=== PATIENT | male | born 1955 | race Caucasian/White ===

== ENCOUNTER 2023-01-23 07:31 | Emergency (ER) | payer OTHER ==
--- OUTSIDE RECORDS SUMMARY | 2023-01-23 07:38 | XMS REPORT | Continuity of Care Document ---
:1955 Author Organization [facility] t Address [address] [place] [address] [address] [place] [address] Care Team Providers Name Role Phone Faraz Sheikhkerrie Billings Primary Care Physician Chadwick Stephens Attending Clinician Jenni Bain MD Attending Clinician JENNI BAIN Attending Clinician Unavailable Doctor Unassigned, [place] Attending Clinician Unavailable DONALDO HAMMONDS Attending Clinician Unavailable DONALDO HAMMONDS Attending Clinician Unavailable JENNI BAIN Admitting Clinician Unavailable DONALDO HAMMONDS Admitting Clinician Unavailable Payers Payer Name Policy Type Policy Number Effective Date Expiration Date S ource Problems Condition Condition Condition Status Onset Resolution Last Treating Co mments Source Name Details Category Date Date Treatment Clinician Date No known No known Disease Unive rs active active ity of problems problems [facility] Amnesia Amnesia Problem Active 2022-10-11 Me moria (finding) (finding) 17:04:03 l Active [place] Problem 10/11/2022 [facility] Dementia Dementia Problem Active 2022-10-11 Memoria (disorder) (disorder) 17:04:03 l Active [place] Problem 10/11/2022 [facility] Diarrhea Diarrhea Problem Active 2022-10-11 Memoria (finding) (finding) 17:04:03 l Active [place] Problem 10/11/2022 [facility] Gout Gout Problem Active 2022-10-11 Memor ia (disorder) (disorder) 17:04:03 l Active [place] Problem 10/11/2022 [facility] [place] Hemianopia Problem Active 2022-10-11 M emoria (finding) Hemianopia 17:04:03 l (finding) Stafford Active Problem 10/11/2022 [facility] [place] Hypertensi Hypertens Problem Active 2022-10-11 Memoria ve hailey 17:04:03 l disorder, disorder, Herm sosa systemic systemic arterial arterial (disorder) (disorder) Active Problem 10/11/2022 [facility] Thiamin Thiamin Problem Active 2022-10-11 Me moria deficiency deficiency 17:04:03 l (disorder) (disorder) He rmann Active Problem 10/11/2022 [facility] Allergies, Adverse Reactions, Alerts Allergy Allergy Status Severity Reaction(s) Onset Inactive Treating Comm ents Source Name Type Date Date Clinician No Known No Known Active Memori a Medicati Medicati l on on [place] Allergie Allergie s s NO KNOWN Drug Active Univers ALLERGIE Class ity of S [facility] Social History Social Habit Start Date Stop Date Quantity Comments Source Exposure to 2022-05-04 2022-05-14 Not sure [facility] SARS-CoV-2 00:00:00 13:12:00 [facility] (event) Branch Tobacco use and 2022-04-26 2022-04-26 Smokeless tobacco Un iversity of exposure 00:00:00 00:00:00 non-user [facility] Alcohol intake 2022-04-26 2022-04-26 Ex-drinker [facility] 00:00:00 00:00:00 (finding) [facility] Social History 2021-06-13 2021-06-13 [facility] 15:56:06 15:56:06 Sex Ass[birth year] Universit y of 00:00:00 00:00:00 [facility] Smoking Status Start Date Stop Date Source Tobacco smoking consumption Univ ersity of [facility] Branch Tobacco smoking status [facility] Medications Ordered Filled Start Stop Current Ordering Indication Dosage Frequency Signature Comments Components Source Medication Medication Date Date Medication? Clinician (SIG) Name Name mirtazapine Yes = 1 tab, Me moria 15 mg oral 1-17 PO, l tablet 21:52: Bedtime, # Cristy nn 00 30 tab, 0 Refill(s), Pharmacy: [facility], 172.72, cm, 05/29/22 13:37:00 CDT, Height, 90.455, kg, 05/29/22 13:37:00 CDT, Weight Remeron 15 2021-08 Yes 15 mg = 1 Me moria mg oral 2-02 tab, PO, l tablet 18:39: Bedtime, # Cristy nn 00 30 tab, 1 Refill(s), Pharmacy: [facility], 172.72, cm, 05/29/22 13:37:00 CDT, Height, 90.455, kg, 05/29/22 13:37:00 CDT, Weight Exelon 4.6 2021-08 Yes = 1 patch, M emoria mg/24 hr 0-26 TOP, l transdermal 18:59: Daily, Herm sosa film, 00 apply to extended area that release is clean/dry/ hairless & free of redness/ir ritation/b urns/cuts, # 30 patch, 2 Refill(s), Pharmacy: [facility], 172.72, cm, 05/29/22 13:37:00 CDT, Height, 90.455, kg, 05/29/22 13:37:00 CDT, Weight allopurinol 2021-08 Yes TAKE 1 Yung delia 300 mg oral 0-26 TABLET BY l tablet 18:38: MOUTH ONCE Cristy nn 00 DAILY. TAKE COLCHICINE DAILY FOR 7 DAYS, THEN START ON ALLOPURINO L traZODone Yes 50mg Take 50 mg Un iglesia 50 mg 9-23 by mouth ity of tablet 15:11: at [place] [address] bedtime. Medical Branch aspirin 81 0 Yes 81mg Take 81 mg U nivers mg chewable 9-23 by mouth ity of tablet 15:11: in the [place] morning. Medical Branch lisinopriL Yes 10mg Take 10 mg U nivers 10 mg 9-23 by mouth ity of tablet 15:11: in the [place] morning. Medical Branch traZODone Yes 50mg Take 50 mg Un iglesia 50 mg 9-23 by mouth ity of tablet 15:11: at [place] [address] bedtime. Medical Branch aspirin 81 0 Yes 81mg Take 81 mg U nivers mg chewable 9-23 by mouth ity of tablet 15:11: in the [place] [address] morning. Medical Branch lisinopriL Yes 10mg Take 10 mg U nivers 10 mg 9-23 by mouth ity of tablet 15:11: in the [place] [address] morning. Medical Branch traZODone Yes 50mg Take 50 mg Un iglesia 50 mg 9-23 by mouth ity of tablet 15:11: at [place] [address] bedtime. Medical Branch aspirin 81 Yes 81mg Take 81 mg U nivers mg chewable 9-23 by mouth ity of tablet 15:11: in the [place] [address] morning. Medical Branch lisinopriL Yes 10mg Take 10 mg U nivers 10 mg 9-23 by mouth ity of tablet 15:11: in the [place] [address] morning. Medical Branch trazodone Yes TAKE 1 Memori a 50 mg oral 9-20 TABLET BY l tablet 20:18: MOUTH ONCE Cristy nn 00 DAILY AT NIGHT trazodone Yes TAKE 1 Memori a 50 mg oral 9-20 TABLET BY l tablet 20:18: MOUTH ONCE Cristy nn 00 DAILY AT NIGHT iopamidol 2021- No [id number] 130mL 130 mL, Univers (ISOVUE 04-13 Intravenou ity o f 370-500 mL) 03:00: 01:50 s, ONCE, 1 [place] injection 00 :00 dose, On Medica l 130 mL Fri04/12/22 Branch at 2200, Routine tetracaine 2021- No 2[drp] 2 Drop, U nivers (PONTOCAINE 04-13 Left Eye, it y of ) 0.5 % 02:31: 02:32 ONCE, 1 [place] ophthalmic 00 :00 dose, On Medic al drops 2 Fri04/12/22 Branch Drop at 2145, Routine Memantine Yes 5 mg = 1 Yung delia hydrochlori 5-10 tab, PO, l de 5 MG 15:45: BID, # 60 Cristy nn Oral Tablet 00 tab, 3 [Namenda] Refill(s), Pharmacy: [facility], 177.8, cm, 06/14/20 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, Height, 90, kg, 06/14/20 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, Weight thiamine 2020-0 Yes 100 mg = 1 Mem oria 100 mg oral 5-10 tab, PO, l tablet 15:45: Daily, X Danny 90 day, # 90 tab, 2 Refill(s), Pharmacy: [facility], 177.8, cm, 06/14/20 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, Height, 90, kg, 06/14/20 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, Weight Memantine 2020-0 Yes 5 mg = 1 Yung delia hydrochlori 5-10 tab, PO, l de 5 MG 15:45: BID, # 60 Cristy nn Oral Tablet 00 tab, 3 [Namenda] Refill(s), Pharmacy: [place] [id number], 177.8, cm, 06/14/20 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, Height, 90, kg, 06/14/20 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, Weight thiamine 2020-0 Yes 100 mg = 1 Mem oria 100 mg oral 5-10 tab, PO, l tablet 15:45: Daily, X Danny 90 day, # 90 tab, 2 Refill(s), Pharmacy: [facility], 177.8, cm, 06/14/20 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, Height, 90, kg, 06/14/20 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, Weight Memantine 2019- Yes 5 mg = 1 Yung delia hydrochlori 1-11 tab, PO, l de 5 MG 19:41: BID, # 60 Cristy nn Oral Tablet 00 tab, 3 [Namenda] Refill(s), Pharmacy: [facility], 177.8, cm, 06/14/20 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, Height, 90, kg, 06/14/20 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, Weight Memantine 2020-1 Yes 5 mg = 1 Yung delia hydrochlori 1-11 tab, PO, l de 5 MG 19:41: BID, # 60 Cristy nn Oral Tablet 00 tab, 3 [Namenda] Refill(s), Pharmacy: [facility], 177.8, cm, 06/14/20 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, Height, 90, kg, 06/14/20 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, Weight Galantamine 2019-08 No 4 mg = 1 Me moria 4 MG Oral 0-21 tab, PO, l Tablet 16:02: Daily, # Stafford [Razadyne] 00 30 tab, 3 Refill(s), Pharmacy: [facility], 175.26, cm, 05/17/20 10:02:00 CDT, Height, 91.364, kg, 05/17/20 10:02:00 CDT, Weight Galantamine 2019-08 No 4 mg = 1 Me moria 4 MG Oral 0-21 tab, PO, l Tablet 16:02: Daily, # Stafford [Razadyne] 00 30 tab, 3 Refill(s), Pharmacy: [facility], 175.26, cm, 05/17/20 10:02:00 CDT, Height, 91.364, kg, 05/17/20 10:02:00 CDT, Weight thiamine 2019-08 Yes 100 mg = 1 Mem oria 100 mg oral 0-14 tab, PO, l tablet 15:11: Daily, X Stafford day, # 90 tab, 1 Refill(s), Pharmacy: [facility], 175.26, cm, 05/17/20 10:02:00 CDT, Height, 91.364, kg, 05/17/20 10:02:00 CDT, Weight Donepezil 2019-08 Yes 10 mg = 1 Mem oria hydrochlori 0-14 tab, PO, l de 10 MG 15:11: Bedtime, # Her shipley Oral Tablet 00 30 tab, 3 [Aricept] Refill(s), Pharmacy: [facility], 175.26, cm, 05/17/20 10:02:00 CDT, Height, 91.364, kg, 05/17/20 10:02:00 CDT, Weight thiamine 2019-08 Yes 100 mg = 1 Mem oria 100 mg oral 0-14 tab, PO, l tablet 15:11: Daily, X Danny 90 day, # 90 tab, 1 Refill(s), Pharmacy: [facility], 175.26, cm, 05/17/20 10:02:00 CDT, Height, 91.364, kg, 05/17/20 10:02:00 CDT, Weight Donepezil 2019-1 Yes 10 mg = 1 Mem oria hydrochlori 0-14 tab, PO, l de 10 MG 15:11: Bedtime, # Her shipley Oral Tablet 00 30 tab, 3 [Aricept] Refill(s), Pharmacy: [facility], 175.26, cm, 05/17/20 10:02:00 CDT, Height, 91.364, kg, 05/17/20 10:02:00 CDT, Weight thiamine 2019- No 100 mg = 1 Mem oria 100 mg oral 0-14 tab, PO, l tablet 15:10: Daily, # Stafford 00 90 tab, 1 Refill(s) thiamine 2019-08 No 100 mg = 1 Mem oria 100 mg oral 0-14 tab, PO, l tablet 15:10: Daily, # Danny 00 90 tab, 1 Refill(s) Donepezil 2020-0 Yes 5 mg = 1 Yung delia hydrochlori 9-30 tab, PO, l de 5 MG 16:00: Bedtime, # Herm sosa Oral Tablet 00 30 tab, 3 [Aricept] Refill(s), Pharmacy: [facility], 172.72, cm, 05/03/20 10:23:00 CDT, Height, 90.909, kg, 05/03/20 10:23:00 CDT, Weight Donepezil 2020-0 Yes 5 mg = 1 Yung delia hydrochlori 9-30 tab, PO, l de 5 MG 16:00: Bedtime, # Herm sosa Oral Tablet 00 30 tab, 3 [Aricept] Refill(s), Pharmacy: [facility], 172.72, cm, 05/03/20 10:23:00 CDT, Height, 90.909, kg, 05/03/20 10:23:00 CDT, Weight lisinopril 2020-0 Yes 10 mg = 1 Me moria 10 mg oral 9-18 tab, PO, l tablet 18:29: Daily, 0 Stafford 00 Refill(s) aspirin 81 2020-0 Yes 162 mg = 2 M emoria mg tablet, 9-18 tab, PO, l enteric 18:29: Daily, # Les n coated 00 90 tab, 3 Refill(s) Aspirin 81 2020-0 Yes 81 mg = 1 Me moria MG Enteric 9-18 tab, PO, l Coated 18:29: Daily, # [place] Tablet 00 90 tab, 3 Refill(s) Diphenhydra 2020-0 Yes 2 tab, PO, Memoria mine 9-18 Bedtime, 0 l Hydrochlori 18:29: Refill(s) H ermann de 25 MG / 00 Naproxen sodium 220 MG Oral Tablet [Aleve PM] lisinopril 2019-0 Yes 10 mg = 1 Me moria 10 mg oral 9-18 tab, PO, l tablet 18:29: Daily, 0 Stafford 00 Refill(s) Aspirin 81 2020-0 Yes 81 mg = 1 Me moria MG Enteric 9-18 tab, PO, l Coated 18:29: Daily, # Danny Tablet 00 90 tab, 3 Refill(s) Diphenhydra 2020-0 Yes 2 tab, PO, Memoria mine 918 Bedtime, 0 l Hydrochlori 18:29: Refill(s) H ermann de 25 MG / 00 Naproxen sodium 220 MG Oral Tablet [Aleve PM] Vital Signs Vital Name Observation Time Observation Value Comments Source Systolic blood 2022-04-26 20:16:00 94 mm[Hg] [facility] Diastolic blood 2022-04-26 20:16:00 67 mm[Hg] [facility] Heart rate 2022-04-26 20:16:00 93 /min [facility] Oxygen saturation in 2022-04-26 20:16:00 96 /min [facility] Arterial blood by [facility] Pulse oximetry Branch Body temperature 2022-04-26 20:14:00 36.56 [facility] Respiratory rate 2022-04-26 20:14:00 19 /min [facility] Body height 2022-04-26 20:14:[address] [facility] Body weight 2022-04-26 20:14:[address] [facility] BMI 2022-04-26 20:14:00 30.24 kg/m2 [facility] Systolic blood 2022-04-13 02:30:00 128 mm[Hg] Univer sity of pressure [facility] Diastolic blood 2022-04-13 02:30:00 75 mm[Hg] Unive rsity of pressure [facility] Heart rate 2022-04-13 02:30:00 72 /min [facility] Respiratory rate 2022-04-13 02:30:00 21 /min [facility] Oxygen saturation in 2022-04-13 02:30:00 97 /min [facility] Arterial blood by [facility] Pulse oximetry [place] Body temperature 2022-04-13 00:41:00 37.11 [facility] Body height 2022-04-13 00:41:[address] [facility] Body weight 2022-04-13 00:41:[address] [facility] BMI 2022-04-13 00:41:00 31.16 kg/m2 [facility] Systolic (mm Hg) 2022-05-29 18:35:00 Yung rial [place] Diastolic (mm Hg) 2022-05-29 18:35:00 Mem orial [place] Heart Rate 2022-05-29 18:35:00 [facility] [place] Height 2022-05-29 18:35:00 5 [ft_i] [facility] Danny Weight 2022-05-29 18:35:00 [facility] Cal[facility] 2022-05-29 18:35:00 Memori al Danny Systolic (mm Hg) 2022-04-23 20:05:00 Yung rial Danny Diastolic (mm Hg) 2022-04-23 20:05:00 Mem orial Danny Heart Rate 2022-04-23 20:05:00 [facility] [place] Respitory Rate 2022-04-23 20:05:00 Memori al [place] Height 2022-04-23 20:05:00 172.72 cm [facility] [place] Weight 2022-04-23 20:05:00 [facility] Danny BMI Calculated 2022-04-23 20:05:00 Memori al [place] Systolic (mm Hg) 2020-06-14 19:15:00 Yung rial Danny Diastolic (mm Hg) 2020-06-14 19:15:00 Mem orial Danny Heart Rate 2020-06-14 19:15:00 [facility] [place] Respitory Rate 2020-06-14 19:15:00 Memori al [place] Height 2020-06-14 19:15:00 177.8 cm [facility] [place] Weight 2020-06-14 19:15:00 [facility] [place] BMI Calculated 2020-06-14 19:15:00 Memori al [place] Systolic (mm Hg) 2020-05-17 15:02:00 Yung rial Danny Diastolic (mm Hg) 2020-05-17 15:02:00 Mem orial Danny Heart Rate 2020-05-17 15:02:00 [facility] Danny Respitory Rate 2020-05-17 15:02:00 Memori al Danny Height 2020-05-17 15:02:00 175.26 cm [facility] [place] Weight 2020-05-17 15:02:00 [facility] Danny BMI Calculated 2020-05-17 15:02:00 Memori al Danny Systolic (mm Hg) 2020-05-03 15:17:00 Yung rial Danny Diastolic (mm Hg) 2020-05-03 15:17:00 Mem orial Danny Heart Rate 2020-05-03 15:17:00 [facility] Danny Respitory Rate 2020-05-03 15:17:00 Memori al [place] Height 2020-05-03 15:17:00 172.72 cm [facility] [place] Weight 2020-05-03 15:17:00 [facility] Danny BMI Calculated 2020-05-03 15:17:00 Memori al Danny Systolic (mm Hg) 2020-04-21 18:26:00 Yung rial [place] Diastolic (mm Hg) 2020-04-21 18:26:00 Mem orial [place] Heart Rate 2020-04-21 18:26:00 [facility] Danny Height 2020-04-21 18:26:00 175.26 cm [facility] Danny Weight 2020-04-21 18:26:00 [facility] [place] BMI Calculated 2020-04-21 18:26:00 Memori al Danny Procedures Procedure Date / Time Performing Clinician Source Performed CONSENT/REFUSAL FOR 2022-04-26 19:49:37 Doctor Unassigned, No Un [facility] DIAGNOSIS AND TREATMENT Name Medical Branch EKG-12 LEAD 2022-04-13 03:11:46 Cassius Donaldo Maceo o [facility] CT ANGIOGRAM HEAD 2022-04-13 02:10:54 Cassius [facility] CT ANGIOGRAM NECK 2022-04-13 02:10:[address] [facility] PERFUSION W 2022-04-13 02:10:54 Donaldo Hammonds [facility] CONTRAST [facility] CT HEAD WO CONTRAST 2022-04-13 02:09:[address] [facility] COMP. METABOLIC PANEL 2022-04-13 01:12:00 Donaldo Hammonds [facility] ([id number]) [facility] CBC WITH DIFF 2022-04-13 01:12:00 Donaldo Hammonds [facility] PROTHROMBIN TIME / INR 2022-04-13 01:12:00 [facility]onaldo [facility] ACTIVATED PARTIAL 2022-04-13 01:12:00 Cassius [facility] THRMPLAS [facility] COVID-19 (ID NOW RAPID 2022-04-13 01:12:00 Donaldo Hammonds [facility] TESTING) [facility] NOTICE OF PRIVACY 2022-04-13 00:38:02 Doctor Unassigned, No Univ [facility] PRACTICES Name [facility] CONSENT/REFUSAL FOR 2022-04-13 00:37:29 Doctor Unassigned, [facility] AND TREATMENT Name [facility] Encounters Start End Encounter Admission Attending Care Care Encounter Source Date/Time Date/Time Type Type Clinicians Facility Department ID 2022-10-07 2022-10-09 Outside WILMAN MACEDO [id number] Memoria 20:13:58 05:59:59 Medical Neurology 00 l Records Sheila Delgado 2022-10-07 2022-10-08 Outpatient JAKUBSCHZOHRA CALLSCHZOHRA [id number] 14:13:58 23:59:59 00 2022-09-03 2022-09-03 Ambulatory WILMAN MNManuelito [id number] Memoria 17:00:00 17:00:00 Pre-Reg Neurology 14 l Sheila Delgado 2022-09-03 2022-09-03 Outpatient Krell, MHMISCHER MHMISCHER [id number] 11:00:00 11:00:00 Chadwick 14 Maulik 2022-08-09 2022-08-09 Outpatient MHIE MHIE [id number] Memoria 15:30:00 15:30:00 14 jonny Delgado 2022-07-12 2022-07-12 Ambulatory MHIE MNA [id number] Memoria 19:45:00 19:45:00 Pre-Reg Neurology 13 l Sheila Stafford 2022-07-12 2022-07-12 Outpatient MHIE MHIE [id number] Memoria 13:45:00 13:45:00 13 jonny Delgado 2022-07-12 2022-07-12 Outpatient Kat, MHMISCHER MHMISCHER [id number] 13:45:00 13:45:00 Chadwick 13 Maulik 2022-05-29 2022-05-30 Outpatient nullFlavo MNA [id number] Memoria 18:30:00 04:59:59 r Neurology 12 jonny Sosa Danny 2022-05-29 2022-05-29 Outpatient Kat, MHMISCHER MHMISCHER [id number] 13:30:00 23:59:59 Chadwick 12 Maulik 2022-05-29 2022-05-29 Outpatient MHIE MHIE [id number] Memoria 13:30:00 13:30:00 12 jonny Stafford 2022-05-29 2022-05-29 Outpatient MHIE MHIE [id number] Memoria 13:30:00 13:30:00 12 jonny Danny 2022-05-15 2022-05-15 [facility] [id number] Univers 00:00:00 00:00:00 Jenni WATSON [id number] itYuliya [id number] Kalen DIAIO [id number] [address] 2022-05-14 2022-05-14 Outpatient R ODELL [facility] [id number] Univers 13:12:44 23:59:00 JENNI ring o f [facility] 2022-04-26 2022-04-26 Outpatient R ODELL, [facility] [id number] Univers 15:00:00 15:28:12 JENNI ring o f [facility] 2022-04-26 2022-04-26 Office Odell, [facility] [id number] Univers 15:00:00 15:28:12 Visit Jenni W[place]SON [id number] ity [id number] [facility] [id number] Nv dical NAL 059 [facility] 2022-04-26 2022-04-26 Orders Doctor SHUKRI [id number] Univers 00:00:00 00:00:00 Only Unassigned, HARRY 350.1.13.10 ity of [facility] [id number] Alireza [id number] [facility] 009 [place] 2022-04-23 2022-04-24 Outpatient nullFlavo MNA [id number] Memoria 20:45:00 04:59:59 r Neurology 11 l Sheila Robertsann 2022-04-23 2022-04-24 Outpatient nullFlavo MNA [id number] Memoria 20:45:00 04:59:59 r Neurology 11 l Sheila Delgado 2022-04-23 2022-04-23 Outpatient TATYANA Stephens MISCHER [id number] 15:45:00 23:59:59 Chadwikc Opal Maulik 2022-04-23 2022-04-23 Outpatient MHIE IE [id number] Memoria 15:45:00 15:45:00 11 jonny Delgado 2022-04-12 2022-04-12 Emergency X DONALDO HAMMONDS [facility] ERT [id number] Univers 19:52:00 22:31:00 DONALDO HAMMONDS of [facility] 2022-04-12 2022-04-12 Emergency Cassius [facility] [id number] Univers 19:52:00 22:31:00 Donaldo WATSON [id number] i [id number] [id number] [facility] 084 [place] 2022-03-22 2022-03-22 Ambulatory nullFlavo MNA [id number] Memoria 16:00:00 16:00:00 Pre-Reg r Neurology 10 l Sheila Delgado 2022-03-22 2022-03-22 Ambulatory nullFlavo MNA [id number] Memoria 16:00:00 16:00:00 Pre-Reg r Neurology 10 l Sheila Delgado 2022-03-22 2022-03-22 Outpatient MHIE MHIE [id number] Memoria 11:00:00 11:00:00 10 jonny Delgado 2022-03-22 2022-03-22 [id number] 11:00:00 11:00:00 Chadwick Guillermina Willingham 2022-03-13 2022-03-13 Ambulatory nullFlavo MNA [id number] Memoria 15:00:00 15:00:00 Pre-Reg r Neurology 09 l Sheila Delgado 2022-03-13 2022-03-13 Ambulatory nullFlavo MNA [id number] Memoria 15:00:00 15:00:00 Pre-Reg r Neurology 09 l Sheila Delgado 2022-03-13 2022-03-13 Outpatient MHIE MHIE [id number] Memoria 10:00:00 10:00:00 09 jonny Delgado 2022-03-13 2022-03-13 [facility]patient [facility] [id number] 10:00:00 10:00:00 Chadwick 09 Maulik 2021-06-13 2021-06-14 Outpatient nullFlavo MNA [id number] Memoria 16:30:00 05:59:59 r Neurology 08 jonny Delgado 2021-06-13 2021-06-14 Outpatient nullFlavo MNA [id number] Memoria 16:30:00 05:59:59 r Neurology 08 jonny Delgado 2021-06-13 2021-06-13 [facility] [id number] 10:30:00 23:59:59 Chadwick 08 Maulik 2021-06-13 2021-06-13 Outpatient MHIE MHIE [id number] Memoria 10:30:00 10:30:00 08 l Danny 2020-12-11 2020-12-12 Outpatient nullFlavo MNA [id number] Memoria 15:30:00 04:59:59 r Neurology 07 l Sheila Delgado 2020-12-11 2020-12-12 Outpatient nullFlavo MNA [id number] Memoria 15:30:00 04:59:59 r Neurology 07 l Sheila Delgado 2020-12-11 2020-12-11 Outpatient [id number] 10:30:00 23:59:59 Chadwick Missy Willingham 2020-12-11 2020-12-11 Outpatient MHIE MHIE [id number] Memoria 10:30:00 10:30:00 07 jonny Delgado 2020-09-20 2020-09-20 Ambulatory nullFlavo MNA [id number] Memoria 21:00:00 21:00:00 Pre-Reg r Neurology 05 l Sheila Delgado 2020-09-20 2020-09-20 Ambulatory nullFlavo MNA [id number] Memoria 21:00:00 21:00:00 Pre-Reg r Neurology 05 l Sheila Delgado 2020-09-20 2020-09-20 Outpatient Kat [facility] [id number] 15:00:00 15:00:00 Chadwick Meg Willingham 2020-08-17 2020-08-17 Outpatient MHIE MHIE [id number] Memoria 09:45:00 09:45:00 05 jonny Delgado 2020-06-14 2020-06-15 Outpatient nullFlavo MNA [id number] Memoria 19:00:00 05:59:59 r Neurology 06 l Sheila Delgado 2020-06-14 2020-06-15 Outpatient nullFlavo MNA [id number] Memoria 19:00:00 05:59:59 r Neurology 06 l Sheila Delgado 2020-06-14 2020-06-14 [id number] 13:00:00 23:59:59 Chadwick Arturo Willingham 2020-06-14 2020-06-14 Ambulatory nullFlavo MNA [id number] Memoria 16:30:00 16:30:00 Pre-Reg r Neurology 04 l Sheila Delgado 2020-06-14 2020-06-14 Ambulatory nullFlavo MNA [id number] Memoria 16:30:00 16:30:00 Pre-Reg r Neurology 04 l Sheila Delgado 2020-06-14 2020-06-14 Outpatient MHIE MHIE [id number] Memoria 13:00:00 13:00:00 06 l [place] 2020-06-14 2020-06-14 Outpatient MHIE MHIE [id number] Memoria 10:30:00 10:30:00 04 l Danny 2020-06-14 2020-06-14 [facility] [id number] 10:30:00 10:30:00 Chadwick 04 Maulik 2020-05-17 2020-05-18 Outpatient nullFlavo MNA [id number] Memoria 14:45:00 04:59:59 r Neurology 02 l Sheila Stafford 2020-05-17 2020-05-18 Outpatient nullFlavo MNA [id number] Memoria 14:45:00 04:59:59 r Neurology 02 l [place] Danny 2020-05-17 2020-05-17 [facility] [id number] 09:45:00 23:59:59 [place] 02 Maulik 2020-05-17 2020-05-17 Outpatient MHIE MHIE [id number] Memoria 09:45:00 09:45:00 02 jonny Stafford 2020-05-03 2020-05-04 Outpatient nullFlavo MNA [id number] Memoria 15:45:00 04:59:59 r Neurology 03 l [place] Danny 2020-05-03 2020-05-04 Outpatient nullFlavo MNA [id number] Memoria 15:45:00 04:59:59 r Neurology 03 l [place] 2020-05-03 2020-05-03 [id number] 10:45:00 23:59:59 [place] 03 Maulik 2020-05-03 2020-05-03 Outpatient MHIE MHIE [id number] Memoria 10:45:00 10:45:00 03 jonny Delgado 2020-05-01 2020-05-01 Ambulatory nullFlavo MNA [id number] Memoria 15:30:00 15:30:00 Pre-Reg r Neurology 00 l Sheila Delgado 2020-05-01 2020-05-01 Ambulatory nullFlavo MNA [id number] Memoria 15:30:00 15:30:00 Pre-Reg r Neurology 00 l Sheila Robertsann 2020-05-01 2020-05-01 Outpatient Kat [facility] [id number] 10:30:00 10:30:00 [place] 00 Maulik 2020-04-21 2020-04-22 Outpatient nullFlavo MNA [id number] Memoria 19:30:00 04:59:59 r Neurology 01 l Sheila Robertsann 2020-04-21 2020-04-22 Outpatient nullFlavo MNA [id number] Memoria 19:30:00 04:59:59 r Neurology 01 l Sheila Robertsann 2020-04-21 2020-04-21 Outpatient Kat [facility] [id number] 14:30:00 23:59:59 [place] 01 Maulik 2020-04-21 2020-04-21 Outpatient MHIE MHIE [id number] Memoria 14:30:00 14:30:00 01 jonny Danny Results Test Description Test Time Test Comments Results Result Comments Source CBC WITH DIFF 2022-04-13 01:42:50 Test Item Value Reference Range Interpretation Comme nts WBC (test code = 6690-2) See_Comment [A utomated message] The system which generated this result transmitted ref erence range: 4.20 - 10.70 10*3/?L . The reference range was not u sed to interpret this result as normal/abnormal. RBC (test code = 789-8) See_Comment [Au tomated message] The system which generated this result transmitted ref erence range: 4.26 - 5.52 10*6/?L. The reference range was not u sed to interpret this result as normal/abnormal. HGB (test code = 718-7) 14.7 g/dL 12.2-16.4 HCT (test code = 4544-3) 43.3 % 38.4-49.3 MCV (test code = 787-2) 89.6 fL 81.7-95.6 MCH (test code = 785-6) 30.4 pg 26.1-32.7 MCHC (test code = 786-4) 33.9 g/dL 31.2-35 RDW-SD (test code = 42.3 fL 38.5-51.6 50561-4) RDW-CV (test code = 12.9 % 12.1-15.4 788-0) PLT (test code = 777-3) See_Comment [Au tomated message] The system which generated this result transmitted ref erence range: 150 - 328 10*3/?L. The reference range was not u sed to interpret this result as normal/abnormal. MPV (test code = 96024-3) 9.8 fL 9.8-13 NRBC/100 WBC (test code = See_Comment [ Automated message] The system [id number]) which generated this result transmitted ref erence range: 0.0 - 10.0 /100 WBC s. The reference range was not u sed to interpret this result as normal/abnormal. NRBC x10^3 (test code = See_Comment [Au tomated message] The system [id number]) which generated this result transmitted ref erence range: 10*3/?L. The re ference range was not used to int erpret this result as normal/abnor mal. GRAN MAT (NEUT) % (test 53.3 % code = 770-8) IMM GRAN % (test code = 0.40 % 1003341437) LYMPH % (test code = 32.5 % 736-9) MONO % (test code = 10.3 % 5905-5) EOS % (test code = 713-8) 2.9 % BASO % (test code = 0.6 % 706-2) GRAN MAT x10^3(ANC) (test 4.74 10*3/uL 1.99-6.95 code = 4511755511) IMM GRAN x10^3 (test code 0.04 10*3/uL 0-0.06 = 1785381106) LYMPH x10^3 (test code = 2.89 10*3/uL 1.09-3.23 731-0) MONO x10^3 (test code = 0.92 10*3/uL 0.36-1.02 742-7) EOS x10^3 (test code = 0.26 10*3/uL 0.06-0.53 711-2) BASO x10^3 (test code = 0.05 10*3/uL 0.01-0.09 704-7) [facility]. METABOLIC PANEL (15102)2022-04-13 01:39:28 Test Item Value Reference Range Interpretation Comments NA (test code = 140 mmol/L 135-145 5643407865) K (test code = 4.7 mmol/L 3.5-5 0765296504) CL (test code = 107 mmol/L 98-108 6694349293) CO2 TOTAL (test code = 27 mmol/L 23-31 9501437848) AGAP (test code = 2-16 9316160446) BUN (test code = 22 mg/dL 7-23 6618601033) GLUCOSE (test code = 92 mg/dL 70-110 0076585878) CREATININE (test code = 1.71 mg/dL 0.6-1.25 H 9798968912) TOTAL BILI (test code = 0.6 mg/dL 0.1-1.5 0642655195) CALCIUM (test code = 9.1 mg/dL 8.6-10.6 6255361713) T PROTEIN (test code = 6.4 g/dL 6.3-8.2 5719253482) ALBUMIN (test code = 4.3 g/dL 3.5-5 0089997626) ALK PHOS (test code = 80 U/L 34-122 4160910203) ALTv (test code = 25 U/L 5-50 1742-6) AST(SGOT) (test code = 27 U/L 13-40 6665530335) eGFR (test code = mL/min/1.73m2 6110299171) TIA (test code = TIA) Association of Glomerular Filtration Rate (GFR) and Staging of Kidney Disease* + --+ --+ ------+| GFR (mL/min/1.73 m2) ?| With Kidney Damage ?| ?Without Kidney Damage+ --------+ --------+ +| ?>90 ?| ?Stage one ?| ? Normal ?+ ---+ ---+ -------+| ?60-89 ?| ?Stage two ?| ? Decreased GFR ? + --+ --+ ------+| ?30-59 ?| ?Stage three ?| ? Stage three ? + --+ --+ ------+| ?15-29 ?| ?Stage four ? | ? Stage four ?+ ---+ ---+ -------+| ?<15 (or dialysis) ? ?| ?Stage five ? | ? Stage five ?+ ---+ ---+ -------+ *Each stage assumes the associated GFR level has been in effect for at least three months. ?Stages 1 to 5, with or without kidney disease, indicate chronic kidney disease. Notes: Determination of stages one and two (with eGFR >59mL/min/1.73 m2) requires estimation of kidney damage for at least three months as defined by structural or functional abnormalities of the kidney, manifested by either:Pathological abnormalities or Markers of kidney damage (including abnormalities in the composition of the blood or urine or abnormalities in imaging tests). Lab Interpretation Abnormal (test code = 97575-3) [facility] [id number] 01:36:47 Test Item Value Reference Range Interpretation Comments APTT Patient (test See_Comment [Automat ed code = 3173-2) message] The system which generated this result transmitted reference range : 23 - 38 Seconds . The reference range was not used to interpr et this result as normal/abnormal . TIA (test code = TIA) The [facility] patient population mean normal value for aPTT is 30 seconds. Lab Interpretation Normal (test code = 58571-5) [facility] [id number] 01:34:47 Test Item Value Reference Range Interpretation Comments PROTIME PATIENT (test See_Comment [Auto mated message] code = 5964-2) The system wh ich generated this result transmitted ref erence range: 12.0 - 1 4.7 Seconds. The re ference range was not u sed to interpret this result as normal/abnor mal. INR (test code = 6301-6) Nor mal INR <1.1; Warfarin Therap eutic range 2.0 to 3. 0 or 2.5 to 3.5, dep ending upon the indica tions. Lab Interpretation (test Normal code = 90479-3) [facility]"
--- NOTE | 2023-01-23 08:06 | RAD REPORT ---
EXAM DESCRIPTION: CT - Ct Stroke Brain Wo Cont - 01/23/2023 7:57 am CLINICAL HISTORY: Confusion/alteration of awareness. Difficulty walking COMPARISON: October 2022 MRI TECHNIQUE: Computed axial tomography of the head was obtained. All CT scans are performed using dose optimization technique as appropriate and may include automated exposure control or mA/KV adjustment according to patient size. FINDINGS: An intracranial bleed is not seen . The ventricles are normal in caliber. No extra-axial fluid collection is noted. To moderate cerebral atrophy. No significant hypodensity within the brain noted Visualize right maxillary sinus is opacified consistent with sinusitis IMPRESSION: No acute intracranial abnormality is seen. If patient's symptoms persist MRI of the bra in would be recommended Dr Guillory of the emergency room was notified at 8:01 a.m. on 01/23/2023
[2023-01-23 08:40] LABS: Protime INR 1.15
[2023-01-23 08:50] LABS: Albumin 3.5 g/dL (3.4-5.0); Bilirubin Direct 0.1 mg/dL (0-0.2); Bilirubin Indirect, Calculated 0.6 mg/dL (0.2-0.8); Bilirubin Total 0.7 mg/dL (0.2-1.0); Magnesium 1.9 mg/dL (1.6-2.4); Potassium 4.1 mEq/L (3.5-5.1); Protein, Total 6.9 g/dL (6.4-8.2); Troponin High Sensitivity 5.5 pg/mL (<58.9)
[2023-01-23 08:55] LABS: Hematocrit 43.7 % (39.6-49.0); Lymphocytes % 25.9 % (15.3-44.8); MCV 91.1 fL (80-100); MPV 8.6 fL (7.6-11.3)
--- NOTE | 2023-01-23 08:57 | RAD REPORT ---
EXAM DESCRIPTION: [place] Single View01/23/2023 8:50 am CLINICAL HISTORY: Hypertension/weakness COMPARISON: 2021 FINDINGS: The lungs appear clear of acute infiltrate. The heart is normal size IMPRESSION: No acute abnormalities displayed
--- NOTE | 2023-01-23 09:45 | EDPHYS ---
Physician Documentation [facility] Name: Isaias Oshea Age: 67 yrs Sex: Male : 1955 Arrival Date: 01/23/2023 Time: 07:31 Bed 4 Private MD: ED Physician Herbert Guillory HPI: 01/23 10:50 This 67 yrs old Male presents to ER via Wheelchair with complaints of Weakness, Trouble kdr Walking. 10:50 Patient's states that last night he started having more difficulty with his kdr normally awkward gait. The patient has Alzheimer's and is shuffling gait. The felt however that last evening he was having more difficulty walking and also walked with his head down. In addition, the patient would state generally that he did not feel well. He was not able to vocalize or localize more detail about his discomfort. On initial exam patient has no complaints he denies any discomfort pain or or otherwise anything out of the normal. Patient does not appear toxic in any way in the ED. Onset: The symptoms/episode began/occurred last night. Severity of symptoms: At their worst the symptoms were mild in the emergency department the symptoms are unchanged. The patient has not experienced similar symptoms in the past. The patient has not recently seen a physician. The states that she feels his awkward gait has continued today. Historical: - Allergies: 07:42 No Known Allergies; cm10 - Home Meds: 08:30 atenolol 25 mg Oral tablet 0.5 tab once [Active]; lisinopril 10 mg Oral tab 1 tab once ph daily [Active]; tamsulosin 0.4 mg oral capsule once [Active]; mirtazapine 15 mg Oral tablet every day at bedtime [Active]; trazodone 50 mg Oral tab 1 tab once daily [Active]; rivastigmine 4.6 mg/24 hour transdermal patch, transdermal 24 hours daily [Active]; - PMHx: 07:42 Alzheimer's disease; Hypertensive disorder; cm10 - Immunization history:: Adult Immunizations unknown. - Social history:: Smoking status: Patient denies any tobacco usage or history of. ROS: 10:50 Constitutional: Negative for fever, chills, and weight loss, Eyes: Negative for injury, kdr pain, redness, and discharge, ENT: Negative for injury, pain, and discharge, Neck: Negative for injury, pain, and swelling, Cardiovascular: Negative for chest pain, palpitations, and edema, Respiratory: Negative for shortness of breath, cough, wheezing, and pleuritic chest pain, Abdomen/GI: Negative for abdominal pain, nausea, vomiting, diarrhea, and constipation, Back: Negative for injury and pain, : Negative for injury, bleeding, discharge, and swelling, MS/Extremity: Negative for injury and deformity, Skin: Negative for injury, rash, and discoloration, Neuro: Negative for headache, weakness, numbness, tingling, and seizure activity. Psych: Negative for depression, anxiety, suicide ideation, homicidal ideation, and hallucinations, Allergy/Immunology: Negative for hives, rash, and allergies, Endocrine: Negative for neck swelling, polydipsia, polyuria, polyphagia, and marked weight changes, Hematologic/Lymphatic: Negative for swollen nodes, abnormal bleeding, and unusual bruising. Exam: 10:50 Constitutional: This is a well developed, well nourished patient who is awake, alert, kdr and in no acute distress. Head/Face: Normocephalic, atraumatic. Eyes: Pupils equal round and reactive to light, extra-ocular motions intact. Lids and lashes normal. Conjunctiva and sclera are non-icteric and not injected. Cornea within normal limits. Periorbital areas with no swelling, redness, or edema. Neck: Trachea midline, no thyromegaly or masses palpated, and no cervical lymphadenopathy. Supple, full range of motion without nuchal rigidity, or vertebral point tenderness. No Meningismus. Chest/axilla: Normal chest wall appearance and motion. Nontender with no deformity. No lesions are appreciated. Cardiovascular: Regular rate and rhythm with a normal S1 and S2. No gallops, murmurs, or rubs. Normal PMI, no JVD. No pulse deficits. Respiratory: Lungs have equal breath sounds bilaterally, clear to auscultation and percussion. No rales, rhonchi or wheezes noted. No increased work of breathing, no retractions or nasal flaring. Abdomen/GI: Soft, non-tender, with normal bowel sounds. No distension or tympany. No guarding or rebound. No evidence of tenderness throughout. Back: No spinal tenderness. No costovertebral tenderness. Full range of motion. Skin: Warm, dry with normal turgor. Normal color with no rashes, no lesions, and no evidence of cellulitis. MS/ Extremity: Pulses equal, no cyanosis. Neurovascular intact. Full, normal range of motion. Neuro: Awake and alert, GCS 15, oriented to person, place, time, and situation. Cranial nerves II-XII grossly intact. Motor strength 5/5 in all extremities. Sensory grossly intact. Cerebellar exam normal. Normal gait. Psych: Awake, alert, with orientation to person, place and time. Behavior, mood, and affect are within normal limits. Vital Signs: 07:38 BP 116 / 87; Pulse 64; Resp 16; Temp 97.9(O); Pulse Ox 96% on R/A; Weight 95.25 kg; cm10 Height 5 ft. 8 in. ; Pain 0/10; 08:26 BP 117 / 77; Pulse 59; Resp 58; Temp 98.1(O); Pulse Ox 98% on R/A; ph 09:49 BP 114 / 77; Pulse 68; Resp 18; Pulse Ox 100% on R/A; ph 10:12 BP 117 / 78; Pulse 80; Resp 18; Pulse Ox 100% on R/A; Pain 0/10; ld1 07:38 Body Mass Index 31.93 (95.25 kg, 172.72 cm) cm10 07:38 Pain Scale: Adult cm10 10:12 Pain Scale: Adult ld1 NIH Stroke Scale Scores: 10:12 NIHSS Score: 0 ld1 MDM: 09:44 Patient medically screened. kdr 09:45 ED course: I discussed the case with Dr. Waters who recommended CAT scan but no MRI kdr at this time. He also suggested the patient given his underlying medical conditions may be mildly dehydrated. He suggested of fluid bolus and reassessment. Patient remained stable in the ED and then discharged was happy and able to be sent home without undue concern. Patient and were happy with the care provided the plan for discharge and follow-up. 10:50 Data reviewed: vital signs, nurses notes, lab test result(s). kdr 01/23 07:48 Order name: Basic Metabolic Panel; Complete Time: 08:52 kdr 01/23 07:48 Order name: CBC with Diff; Complete Time: 09:19 kdr 01/23 07:48 Order name: Hepatic Function; Complete Time: 08:52 kdr 01/23 07:48 Order name: High Sensitivity Troponin; Complete Time: 08:52 kdr 01/23 07:48 Order name: Magnesium; Complete Time: 08:52 kdr 01/23 07:48 Order name: Protime (+inr); Complete Time: 08:52 kdr 01/23 07:48 Order name: Ptt, Activated; Complete Time: 08:52 kdr 01/23 08:34 Order name: COVID-19 SARS RT PCR; Complete Time: 09:38 kdr 01/23 08:34 Order name: Flu; Complete Time: 09:38 kdr 01/23 07:48 Order name: CT Stroke Brain w/o Contrast; Complete Time: 08:52 kdr 01/23 07:48 Order name: Stroke CXR 1 View; Complete Time: 09:19 kdr 01/23 07:48 Order name: EKG; Complete Time: 07:49 kdr 01/23 07:48 Order name: Accucheck; Complete Time: 08:26 kdr 01/23 07:48 Order name: Cardiac monitoring; Complete Time: 08:26 kdr 01/23 07:48 Order name: EKG - Nurse/Tech; Complete Time: 08:26 kdr 01/23 07:48 Order name: IV Saline Lock; Complete Time: 08:26 kdr 01/23 07:48 Order name: Labs collected and sent; Complete Time: 08:26 kdr 01/23 07:48 Order name: NPO; Complete Time: 07:59 kdr 01/23 07:48 Order name: O2 Per Protocol; Complete Time: 07:59 kdr 01/23 07:48 Order name: O2 Sat Monitoring; Complete Time: 07:59 kdr 01/23 07:48 Order name: Stroke Swallow Screen; Complete Time: 08:26 kdr Administered Medications: 09:48 Drug: NS 0.9% IV 500 ml Route: IV; Rate: bolus; Site: left antecubital; ph 10:45 Follow up: IV Status: Completed infusion ph Disposition Summary: 01/23/23 09:44 Discharge Ordered Location: Home kdr Problem: new kdr Symptoms: have improved kdr Condition: Stable kdr Diagnosis - Confusion, altered mental status, dehydration kdr Followup: kdr - With: Private Physician - When: 2 - 3 days - Reason: If symptoms return, Further diagnostic work-up, Recheck today's complaints, Continuance of care, Re-evaluation by your physician Discharge Instructions: - Discharge Summary Sheet kdr - Confusion kdr - Dehydration, Elderly, [id number] kdr Forms: - Medication Reconciliation Form kdr - Thank You Letter kdr NIH Stroke Scale - NIH Stroke Score Date: 01/23/2023 Time: 10:12 Total Score = 0 10. Dysarthria (speech clarity - read or repeat words) - 0(Normal) 11. Extinction and Inattention (visual/tactile/auditory/spatial/personal) - 0(No abnormality) 1a. Level of Consciousness (LOC) - 0(Alert) 1b. Level of Consciousness (LOC) (Month \T\ Age) - 0(Both) 1c. LOC Commands (Open \T\ Closes Eyes/Flat Lock Operator) - 0(Both) 2. Best Gaze (Lateral Gaze Paresis) - 0(Normal) 3. Visual Field Loss - 0(No visual loss) 4. Facial Palsy - 0(Normal) 5a. Left Arm: Motor (10-second hold) - 0(No drift) 5b. Right Arm: Motor (10-second hold) - 0(No drift) 6a. Left Leg: Motor (5-second hold - always test supine) - 0(No drift) 6b. Right Leg: Motor (5-second hold - always test supine) - 0(No drift) 7. Limb Ataxia (finger/nose \T\ heel/neri - test with eyes open) - 0(Absent) 8. Sensory Loss (pinprick arms/legs/face) - 0(Normal) 9. Best Language: Aphasia (description/naming/reading) - 0(No aphasia) Initials: ld1 Signatures: Dispatcher [employer] Herbert Johnson MD MD kdr Marielos Swanson, RN RN ph Vaishali Shahid, RN RN cm10
--- NOTE | 2023-01-23 09:45 | ER ---
Nurse's Notes [facility] Name: Isaias Oshea Age: 67 yrs Sex: Male : 1955 Arrival Date: 01/23/2023 Time: 07:31 Bed 4 Private MD: Diagnosis: Confusion, altered mental status, dehydration Presentation: 01/23 07:38 Chief complaint: Spouse and/or significant other states: Reports that patient started cm10 having difficulty walking last night and has been having increased confusion. Pt A\T\Ox3 in triage. Pt had a fall last night, didn't hit head, no LOC. Coronavirus screen: Vaccine status: Patient reports receiving the 2nd dose of the covid vaccine. Client denies travel out of the [place] in the last 14 days. Ebola Screen: No symptoms or risks identified at this time. 07:38 Method Of Arrival: Wheelchair cm10 07:42 Initial Sepsis Screen: Does the patient meet any 2 criteria? No. Patient's initial cm10 sepsis screen is negative. Does the patient have a suspected source of infection? No. Patient's initial sepsis screen is negative. Risk Assessment: Do you want to hurt yourself or someone else? Patient reports no desire to harm self or others. Onset of symptoms was January 22, 2023. 07:42 Acuity: WADE 3 cm10 08:24 No acute neurological deficit is noted. Pre-hospital glucose is not applicable to this ph patient. Triage Assessment: 07:43 The onset of the patients symptoms was. General: Appears in no apparent distress. cm10 comfortable, Behavior is calm, cooperative. 08:25 The onset of the patients symptoms was January 22, 2023 at 23:00. General: states ph that pt was last seen normal at approx 11pm last night before bed. Stroke Activation: Symptom onset > 6 hours Physician: Stroke Attending; Name: ; Notified At: ; Arrived At: Physician: Chief Stroke Resident; Name: ; Notified At: ; Arrived At: Physician: Stroke Resident; Name: ; Notified At: ; Arrived At: Physician: ED Attending; Name: ; Notified At: ; Arrived At: Physician: ED Resident; Name: ; Notified At: ; Arrived At: Historical: - Allergies: 07:42 No Known Allergies; cm10 - Home Meds: 08:30 atenolol 25 mg Oral tablet 0.5 tab once [Active]; lisinopril 10 mg Oral tab 1 tab once ph daily [Active]; tamsulosin 0.4 mg oral capsule once [Active]; mirtazapine 15 mg Oral tablet every day at bedtime [Active]; trazodone 50 mg Oral tab 1 tab once daily [Active]; rivastigmine 4.6 mg/24 hour transdermal patch, transdermal 24 hours daily [Active]; - PMHx: 07:42 Alzheimer's disease; Hypertensive disorder; cm10 - Immunization history:: Adult Immunizations unknown. - Social history:: Smoking status: Patient denies any tobacco usage or history of. Screenin:21 [facility] ED Fall Risk Assessment (Adult) History of falling in the last 3 months, ph including since admission No falls in past 3 months (0 pts) Confusion or Disorientation Yes (5 pts) Intoxicated or Sedated No (0 pts) Impaired Gait Yes (1 pt) Mobility Assist Device Used No (0 pt) Altered Elimination Yes (1 pt) Score/Fall Risk Level 3 or more points = High Risk Oriented to surroundings, Maintained a safe environment, Provided non-skid footwear, Hourly rounding (assess needs \T\ fall precautionary measures) done, Used ambulatory aids as needed (educated on \T\ assisted with), Remained with patient while ambulating, Utilized family, sitter, or virtual lead php developer as indicated. Abuse screen: Denies threats or abuse. Denies injuries from another. Nutritional screening: No deficits noted. Tuberculosis screening: No symptoms or risk factors identified. Assessment: 08:21 Ying Swallow Protocol Brief Cognitive Screen What is your name? Normal, Where are you ph right now? Normal, What year is it? Abnormal: hx of dementia. Oral Mechanism Examination Facial Symmetry: Normal, Motion: Normal, Lip Closure: Normal, Oral Mechanism Result: Normal. 3 oz Water Swallow Challenge: Pt able to drink all water without stopping, coughing, choking or throat clearing: Yes Result: PASS. General: Appears in no apparent distress. comfortable, well groomed, Behavior is calm, cooperative. Pain: Denies pain. Neuro: Level of Consciousness is awake, alert, obeys commands, Oriented to person, place, Moves all extremities. Cardiovascular: Capillary refill < 3 seconds in bilateral fingers Patient's skin is warm and dry. Respiratory: Airway is patent Respiratory effort is even, unlabored, Respiratory pattern is regular, symmetrical. GI: No signs and/or symptoms were reported involving the gastrointestinal system. Derm: Skin is pink, warm \T\ dry. 08:24 VAN Scoring: Arm Drift: Patients demonstrates NO arm weakness. Patient is VAN Negative. ph TNKase (Tenecteplase) Screening: Contraindications: Patient reports onset of signs and symptoms of stroke greater than 6 hours ago:. 09:48 Reassessment: Patient appears in no apparent distress at this time. Patient and/or ph family updated on plan of care and expected duration. Pain level reassessed. pt awake and alert w/ no complaints, d/c pending completion of IV fluids. 10:12 Reassessment: Patient appears in no apparent distress at this time. Patient and/or ld1 family updated on plan of care and expected duration. Pain level reassessed. Vital Signs: 07:38 BP 116 / 87; Pulse 64; Resp 16; Temp 97.9(O); Pulse Ox 96% on R/A; Weight 95.25 kg; cm10 Height 5 ft. 8 in. ; Pain 0/10; 08:26 BP 117 / 77; Pulse 59; Resp 58; Temp 98.1(O); Pulse Ox 98% on R/A; ph 09:49 BP 114 / 77; Pulse 68; Resp 18; Pulse Ox 100% on R/A; ph 10:12 BP 117 / 78; Pulse 80; Resp 18; Pulse Ox 100% on R/A; Pain 0/10; ld1 07:38 Body Mass Index 31.93 (95.25 kg, 172.72 cm) cm10 07:38 Pain Scale: Adult cm10 10:12 Pain Scale: Adult ld1 NIH Stroke Scale Scores: 10:12 NIHSS Score: 0 ld1 ED Course: 07:34 Patient arrived in ED. rg4 07:37 Herbert Guillory MD is Attending Physician. kdr 07:42 Triage completed. cm10 07:43 Arm band placed on Patient placed in an exam room, on a stretcher. cm10 07:58 Marielos Swanson, MIGUEL A is Primary Nurse. ph 07:59 CT Stroke Brain w/o Contrast In Process Unspecified. EDMS 08:21 Initial lab(s) drawn, by me, sent to lab. EKG done, by ED staff, reviewed by Herbert Guillory MD. Inserted saline lock: 22 gauge in left antecubital area, using aseptic technique. Blood collected. 08:23 Patient has correct armband on for positive identification. Bed in low position. Side ph rails up X2. Client placed on continuous cardiac and pulse oximetry monitoring. NIBP monitoring applied. Door closed. Noise minimized. Warm blanket given. 08:46 Flu Sent. ld1 08:46 COVID-19 SARS RT PCR Sent. ld1 08:51 Stroke CXR 1 View In Process Unspecified. EDMS 09:49 No provider procedures requiring assistance completed. ph 10:38 IV discontinued, intact, bleeding controlled, No redness/swelling at site. ld1 Administered Medications: 09:48 Drug: NS 0.9% IV 500 ml Route: IV; Rate: bolus; Site: left antecubital; ph 10:45 Follow up: IV Status: Completed infusion ph Medication: 08:25 VIS not applicable for this client. ph Outcome: 09:44 Discharge ordered by . kdr 10:38 Discharged to home ambulatory, with family. ld1 10:38 Condition: stable 10:38 Discharge instructions given to patient, family, Instructed on discharge instructions, follow up and referral plans. Demonstrated understanding of instructions, follow-up care. 10:39 Patient left the ED. ld1 NIH Stroke Scale - NIH Stroke Score Date: 01/23/2023 Time: 10:12 Total Score = 0 10. Dysarthria (speech clarity - read or repeat words) - 0(Normal) 11. Extinction and Inattention (visual/tactile/auditory/spatial/personal) - 0(No abnormality) 1a. Level of Consciousness (LOC) - 0(Alert) 1b. Level of Consciousness (LOC) (Month \T\ Age) - 0(Both) 1c. LOC Commands (Open \T\ Closes Eyes/Concrete Journeyman) - 0(Both) 2. Best Gaze (Lateral Gaze Paresis) - 0(Normal) 3. Visual Field Loss - 0(No visual loss) 4. Facial Palsy - 0(Normal) 5a. Left Arm: Motor (10-second hold) - 0(No drift) 5b. Right Arm: Motor (10-second hold) - 0(No drift) 6a. Left Leg: Motor (5-second hold - always test supine) - 0(No drift) 6b. Right Leg: Motor (5-second hold - always test supine) - 0(No drift) 7. Limb Ataxia (finger/nose \T\ heel/neri - test with eyes open) - 0(Absent) 8. Sensory Loss (pinprick arms/legs/face) - 0(Normal) 9. Best Language: Aphasia (description/naming/reading) - 0(No aphasia) Initials: ld1 Signatures: Dispatcher [employer] EDHerbert Matt MD MD kdr Hall, Patricia RN RN eh Ro, Sugey rg4 Tabitha Salazar RN RN ld1 Vaishali Shahid RN RN cm10
[2023-01-23] MEDS ORDERED: NA CHLORIDE 0.9% 500 ML ONE (09:52)
[2023-01-23 10:48] VITALS: TEMP 97.9
[2023-01-23 10:49] VITALS: O2SAT 100
[2023-01-23 10:51] VITALS: BP 117/78
--- NOTE | 2023-01-23 17:39 | EKG ---
Test Date: 2023-01-23 Test Time: 08:18:33 Manager Of Financial Planning: ODALIS MEASUREMENT RESULTS: Intervals: Rate: 61 HI: 222 QRSD: 76 QT: 400 QTc: 402 [place]: P: 45 HI: 222 QRS: 29 T: 25 INTERPRETIVE STATEMENTS: Sinus rhythm with 1st degree AV block Otherwise normal ECG Compared to ECG 05/12/2022 12:00:15 First degree AV block now present Myocardial infarct finding no longer present Electronically Signed On 01-23-23 17:38:54 CDT by Tobi Morales
== END 2023-01-23 10:39 | disposition home or self-care (01) ==
LOC: ER 07:31
DX: E86.0 Dehydration (principal); R41.82 Altered mental status, unspecified; I10 Essential (primary) hypertension; G30.9 Alzheimer's disease, unspecified; F02.80 Dementia in other diseases classified elsewhere, unspecified severity, without behavioral disturbance, psychotic disturbance, mood disturbance, and anxiety; Z20.822 Contact with and (suspected) exposure to COVID-19
CPT/HCPCS: 93005; 85025; 80048; 36415; 83735; 85610; 80076; 85730; 84484; 87635; 87804 ×2; 70450; 71045; 96360; 99285; J7040

== ENCOUNTER 2023-04-16 10:34 | Emergency (ER) | payer OTHER ==
--- OUTSIDE RECORDS SUMMARY | 2023-04-16 10:39 | XMS REPORT | Continuity of Care Document ---
:1955 Author Organization [facility] t Address [address] [place] [address] [place] [id number] Care Team Providers Name Role Phone YAZMIN WARREN A Primary Care Physician Unavailable Jenni Bain MD Attending Clinician Brenna Mckeon MD Attending Clinician JENNI BAIN Attending Clinician Unavailable Pob, [facility] Attending Clinician Unavailable Doctor Unassigned, [place] Attending Clinician Unavailable Chadwick Stephens Attending Clinician DONALDO HAMMONDS Attending Clinician Unavailable DONALDO HAMMONDS Attending Clinician Unavailable JENNI BAIN Admitting Clinician Unavailable DONALDO HAMMONDS Admitting Clinician Unavailable Payers Payer Name Policy Type Policy Number Effective Date Expiration Date S ource Problems Condition Condition Condition Status Onset Resolution Last Treating Co mments Source Name Details Category Date Date Treatment Clinician Date Amnesia Amnesia Problem Active 2022-10-11 Me moria (finding) (finding) 17:04:03 l Active Danny Problem 10/11/2022 [facility] Dementia Dementia Problem Active 2022-10-11 Memoria (disorder) (disorder) 17:04:03 l Active Danny Problem 10/11/2022 [facility] Diarrhea Diarrhea Problem Active 2022-10-11 Memoria (finding) (finding) 17:04:03 l Active [place] Problem 10/11/2022 [facility] Hypertensi Hypertens Problem Active 2022-10-11 Memoria ve hailey 17:04:03 l disorder, disorder, Herm sosa systemic systemic arterial arterial (disorder) (disorder) Active Problem 10/11/2022 [facility] Thiamin Thiamin Problem Active 2022-10-11 Me moria deficiency deficiency 17:04:03 l (disorder) (disorder) He r[place] Active Problem 10/11/2022 [facility] Hemianopia Hemianopi Problem Active 2022-10-11 Memoria (finding) a 17:04:03 l (finding) Danny Active Problem 10/11/2022 [facility] Neurology [place] Gout Gout Problem Active 2022-10-11 Memor ia (disorder) (disorder) 17:04:03 l Active Danny Problem 10/11/2022 [facility] Neurology [place] No known No known Disease Unive rs active active ity of problems problems [facility] Allergies, Adverse Reactions, Alerts Allergy Allergy Status Severity Reaction(s) Onset Inactive Treating Comm ents Source Name Type Date Date Clinician NO KNOWN Drug Active Univers ALLERGIE Class ity of S [facility] No Known No Known Active Memori a Medicati Medicati l on on Danny Allergie Allergie s s Social History Social Habit Start Date Stop Date Quantity Comments Source Gender identity [facility] 2022-05-04 2022-05-14 Not sure [facility] SARS-CoV-2 (event) 00:00:00 13:12:00 [facility] Tobacco use and 2022-04-26 2022-04-26 Smokeless Universit y of exposure 00:00:00 00:00:00 tobacco [facility] Alcohol intake 2022-04-26 2022-04-26 Ex-drinker [facility] 00:00:00 00:00:00 (finding) [facility] History of Social 2022-04-26 2022-04-26 Univers ity of function 00:00:00 00:00:00 [facility] Sex Ass[birth year] Universit y of 00:00:00 00:00:00 [facility] Smoking Status Start Date Stop Date Source [facility] Medications Ordered Filled Start Stop Current Ordering Indication Dosage Frequency Signature Comments Components Source Medication Medication Date Date Medication? Clinician (SIG) Name Name lisinopriL 2023-0 Yes 10mg Take 1 Unive rs 10 mg 8-09 tablet by ity of tablet 14:35: mouth in [place] [address] the Medical morning. Branch lisinopriL 2023-0 Yes 10mg Take 1 Unive rs 10 mg 8-09 tablet by ity of tablet 14:35: mouth in [place] [address] the Medical morning. Branch lisinopriL 2023-0 Yes 10mg Take 1 Unive rs 10 mg 8-09 tablet by ity of tablet 14:35: mouth in [place] [address] the Medical morning. Branch lisinopriL 2023-0 Yes 10mg Take 1 Unive rs 10 mg 8-09 tablet by ity of tablet 14:35: mouth in [place] [address] the Medical morning. Branch lisinopriL 2023-0 Yes 10mg Take 1 Unive rs 10 mg 8-09 tablet by ity of tablet 14:35: mouth in [place] [address] the Medical morning. Branch lisinopriL 2023-0 Yes 10mg Take 1 Unive rs 10 mg 8-09 tablet by ity of tablet 14:35: mouth in [place] [address] the Medical morning. Branch lisinopriL 2023-0 Yes 10mg Take 1 Unive rs 10 mg 8-09 tablet by ity of tablet 14:35: mouth in [place] [address] the Medical morning. Branch lisinopriL 2023-0 Yes 10mg Take 1 Unive rs 10 mg 8-09 tablet by ity of tablet 14:35: mouth in [place] [address] the Medical morning. Branch lisinopriL 2023-0 Yes 10mg Take 1 Unive rs 10 mg 8-09 tablet by ity of tablet 14:35: mouth in [place] [address] the Medical morning. Branch atenoloL 25 3-0 Yes 25mg Take 1 Univ ers mg tablet 8-09 tablet by ity o f 14:35: mouth in [place] [address] the Medical morning. Branch Take 1/2 pill once a day rivastigmin 3-0 Yes 1{patch Apply 1 Univers e 4.6 mg/24 8-09 } Patch to ity of hour patch 14:35: skin in [place] [address] the Medical morning. Branch tamsulosin 3-0 Yes Take by Univ ers 0.4 mg 24 8-09 mouth ity of hr capsule 14:35: daily. [place] [address] Medical Branch mirtazapine 3-0 Yes 15mg Take 1 Univ ers 15 mg 8-09 tablet by ity of tablet 14:35: mouth at [place] [address] bedtime. Medical Branch atenoloL 25 3-0 Yes 25mg Take 1 Univ ers mg tablet 8-09 tablet by ity o f 14:35: mouth in [place] [address] the Medical morning. Branch Take 1/2 pill once a day rivastigmin 3-0 Yes 1{patch Apply 1 Univers e 4.6 mg/24 8-09 } Patch to ity of hour patch 14:35: skin in [place] [address] the Medical morning. Branch tamsulosin 3-0 Yes Take by Univ ers 0.4 mg 24 8-09 mouth ity of hr capsule 14:35: daily. [place] [address] Medical Branch mirtazapine 3-0 Yes 15mg Take 1 Univ ers 15 mg 8-09 tablet by ity of tablet 14:35: mouth at [place] [address] bedtime. Medical Branch atenoloL 25 2022-0 Yes 25mg Take 1 Univ ers mg tablet 8-09 tablet by ity o f 14:35: mouth in [place] [address] the Medical morning. Branch Take 1/2 pill once a day rivastigmin 3-0 Yes 1{patch Apply 1 Univers e 4.6 mg/24 8-09 } Patch to ity of hour patch 14:35: skin in [place] [address] the Medical morning. Branch tamsulosin 3-0 Yes Take by Univ ers 0.4 mg 24 8-09 mouth ity of hr capsule 14:35: daily. [place] [address] Medical Branch mirtazapine 3-0 Yes 15mg Take 1 Univ ers 15 mg 8-09 tablet by ity of tablet 14:35: mouth at [place] [address] bedtime. Medical Branch atenoloL 25 3-0 Yes 25mg Take 1 Univ ers mg tablet 8-09 tablet by ity o f 14:35: mouth in [place] [address] the Medical morning. Branch Take 1/2 pill once a day rivastigmin 3-0 Yes 1{patch Apply 1 Univers e 4.6 mg/24 8-09 } Patch to ity of hour patch 14:35: skin in [place] [address] the Medical morning. Branch tamsulosin 2023-0 Yes Take by Univ ers 0.4 mg 24 8-09 mouth ity of hr capsule 14:35: daily. [place] [address] Medical Branch mirtazapine 2023-0 Yes 15mg Take 1 Univ ers 15 mg 8-09 tablet by ity of tablet 14:35: mouth at [place] [address] bedtime. Medical Branch atenoloL 25 3-0 Yes 25mg Take 1 Univ ers mg tablet 8-09 tablet by ity o f 14:35: mouth in [place] [address] the Medical morning. Branch Take 1/2 pill once a day rivastigmin 2023-0 Yes 1{patch Apply 1 Univers e 4.6 mg/24 8-09 } Patch to ity of hour patch 14:35: skin in [place] [address] the Medical morning. Branch tamsulosin 3-0 Yes Take by Univ ers 0.4 mg 24 8-09 mouth ity of hr capsule 14:35: daily. [place] [address] Medical Branch mirtazapine 3-0 Yes 15mg Take 1 Univ ers 15 mg 8-09 tablet by ity of tablet 14:35: mouth at [place] [address] bedtime. Medical Branch atenoloL 25 3-0 Yes 25mg Take 1 Univ ers mg tablet 8-09 tablet by ity o f 14:35: mouth in [place] [address] the Medical morning. Branch Take 1/2 pill once a day rivastigmin 3-0 Yes 1{patch Apply 1 Univers e 4.6 mg/24 8-09 } Patch to ity of hour patch 14:35: skin in [place] [address] the Medical morning. Branch tamsulosin 3-0 Yes Take by Univ ers 0.4 mg 24 8-09 mouth ity of hr capsule 14:35: daily. [place] [address] Medical Branch mirtazapine 3-0 Yes 15mg Take 1 Univ ers 15 mg 8-09 tablet by ity of tablet 14:35: mouth at [place] [address] bedtime. Medical Branch atenoloL 25 3-0 Yes 25mg Take 1 Univ ers mg tablet 8-09 tablet by ity o f 14:35: mouth in [place] [address] the Medical morning. Branch Take 1/2 pill once a day rivastigmin 2023-0 Yes 1{patch Apply 1 Univers e 4.6 mg/24 8-09 } Patch to ity of hour patch 14:35: skin in [place] [address] the Medical morning. Branch tamsulosin 2022-0 Yes Take by Univ ers 0.4 mg 24 8-09 mouth ity of hr capsule 14:35: daily. [place] [address] Medical Branch mirtazapine 2022-0 Yes 15mg Take 1 Univ ers 15 mg 8-09 tablet by ity of tablet 14:35: mouth at [place] [address] bedtime. Medical Branch atenoloL 25 2022-0 Yes 25mg Take 1 Univ ers mg tablet 8-09 tablet by ity o f 14:35: mouth in [place] [address] the Medical morning. Branch Take 1/2 pill once a day rivastigmin 2022-0 Yes 1{patch Apply 1 Univers e 4.6 mg/24 8 } Patch to ity of hour patch 14:35: skin in [place] [address] the Medical morning. Branch tamsulosin 0 Yes Take by Univ ers 0.4 mg 24 8-09 mouth ity of hr capsule 14:35: daily. [place] [address] Medical Branch mirtazapine 2022-0 Yes 15mg Take 1 Univ ers 15 mg 8-09 tablet by ity of tablet 14:35: mouth at [place] [address] bedtime. Medical Branch brimonidine 0 Yes INSTILL Uni vers 0.15 % 6-30 ONE DROP ity of ophthalmic 00:00: [place] drops 00 DAY INTO Medical EACH EYE Branch brimonidine 0 Yes INSTILL Uni vers 0.15 % 6-30 ONE DROP ity of ophthalmic 00:00: TWICE [place] 00 DAY INTO Medical EACH EYE Branch brimonidine 2022-0 Yes INSTILL Uni vers 0.15 % 6-30 ONE DROP ity of ophthalmic 00:00: TWICE [place] 00 DAY INTO Medical EACH EYE Branch brimonidine 0 Yes INSTILL Uni vers 0.15 % 6-30 ONE DROP ity of ophthalmic 00:00: TWICE [place] 00 DAY INTO Medical EACH EYE Branch brimonidine 2022-0 Yes INSTILL Uni vers 0.15 % 6-30 ONE DROP ity of ophthalmic 00:00: TWICE [place] 00 DAY INTO Medical EACH EYE Branch brimonidine 2022-0 Yes INSTILL Uni vers 0.15 % 6-30 ONE DROP ity of ophthalmic 00:00: TWICE [place] DAY INTO Medical EACH EYE Branch brimonidine Yes INSTILL Uni vers 0.15 % 6-30 ONE DROP ity of ophthalmic 00:00: TWICE [place] DAY INTO Medical EACH EYE Branch brimonidine Yes INSTILL Uni vers 0.15 % 6-30 ONE DROP ity of ophthalmic 00:00: TWICE [place] DAY INTO Medical EACH EYE Branch mirtazapine Yes = 1 tab, Me moria 15 mg oral 1-17 PO, l tablet 21:52: Bedtime, # Cristy nn 00 30 tab, 0 Refill(s), Pharmacy: [facility], 172.72, cm, 05/29/22 13:37:00 CDT, Height, 90.455, kg, 05/29/22 13:37:00 CDT, Weight mirtazapine Yes = 1 tab, Me moria 15 mg oral 1-17 PO, l tablet 21:52: Bedtime, # Cristy nn 00 30 tab, 0 Refill(s), Pharmacy: [facility], 172.72, cm, 05/29/22 13:37:00 CDT, Height, 90.455, kg, 05/29/22 13:37:00 CDT, Weight mirtazapine Yes = 1 tab, Me moria 15 mg oral 1-17 PO, l tablet 21:52: Bedtime, # Cristy nn 00 30 tab, 0 Refill(s), Pharmacy: [facility], 172.72, cm, 05/29/22 13:37:00 CDT, Height, 90.455, kg, 05/29/22 13:37:00 CDT, Weight mirtazapine 0 Yes = 1 tab, Me moria 15 mg oral 1-17 PO, l tablet 21:52: Bedtime, # Cristy nn 00 30 tab, 0 Refill(s), Pharmacy: [facility], 172.72, cm, 05/29/22 13:37:00 CDT, Height, 90.455, kg, 05/29/22 13:37:00 CDT, Weight Remeron 15 2021-08 Yes 15 mg = 1 Me moria mg oral 2-02 tab, PO, l tablet 18:39: Bedtime, # Cristy nn 00 30 tab, 1 Refill(s), Pharmacy: [facility] 482, 172.72, cm, 05/29/22 13:37:00 CDT, Height, 90.455, kg, 05/29/22 13:37:00 CDT, Weight Remeron 15 2021-08 Yes 15 mg = 1 Me moria mg oral 2-02 tab, PO, l tablet 18:39: Bedtime, # Cristy nn 00 30 tab, 1 Refill(s), Pharmacy: [facility] 482, 172.72, cm, 05/29/22 13:37:00 CDT, Height, 90.455, kg, 05/29/22 13:37:00 CDT, Weight Remeron 15 2021-08 Yes 15 mg = 1 Me moria mg oral 2-02 tab, PO, l tablet 18:39: Bedtime, # Cristy nn 00 30 tab, 1 Refill(s), Pharmacy: [facility] 482, 172.72, cm, 05/29/22 13:37:00 CDT, Height, 90.455, kg, 05/29/22 13:37:00 CDT, Weight Remeron 15 2021-08 Yes 15 mg = 1 Me moria mg oral 2-02 tab, PO, l tablet 18:39: Bedtime, # Cristy nn 00 30 tab, 1 Refill(s), Pharmacy: [facility] 482, 172.72, cm, 05/29/22 13:37:00 CDT, Height, 90.455, kg, 05/29/22 13:37:00 CDT, Weight Exelon 4.6 2021-08 Yes = 1 patch, M emoria mg/24 hr 0-26 TOP, l transdermal 18:59: Daily, Herm sosa film, 00 apply to extended area that release is clean/dry/ hairless & free of redness/ir ritation/b urns/cuts, # 30 patch, 2 Refill(s), Pharmacy: [facility] 482, 172.72, cm, 05/29/22 13:37:00 CDT, Height, 90.455, kg, 05/29/22 13:37:00 CDT, Weight Exelon 4.6 2021-08 Yes = 1 patch, M emoria mg/24 hr 0-26 TOP, l transdermal 18:59: Daily, Herm sosa film, 00 apply to extended area that release is clean/dry/ hairless & free of redness/ir ritation/b urns/cuts, # 30 patch, 2 Refill(s), Pharmacy: [facility], 172.72, cm, 05/29/22 13:37:00 CDT, Height, 90.455, kg, 05/29/22 13:37:00 CDT, Weight Exelon 4.6 2021-08 Yes = 1 patch, M emoria mg/24 hr 0-26 TOP, l transdermal 18:59: Daily, Herm sosa film, 00 apply to extended area that release is clean/dry/ hairless & free of redness/ir ritation/b urns/cuts, # 30 patch, 2 Refill(s), Pharmacy: [facility] 482, 172.72, cm, 05/29/22 13:37:00 CDT, Height, 90.455, kg, 05/29/22 13:37:00 CDT, Weight Exelon 4.6 2021-08 Yes = 1 patch, M emoria mg/24 hr 0-26 TOP, l transdermal 18:59: Daily, Herm sosa film, 00 apply to extended area that release is clean/dry/ hairless & free of redness/ir ritation/b urns/cuts, # 30 patch, 2 Refill(s), Pharmacy: [facility], 172.72, cm, 05/29/22 13:37:00 CDT, Height, 90.455, kg, 05/29/22 13:37:00 CDT, Weight allopurinol 2021-08 Yes TAKE 1 Yung delia 300 mg oral 0-26 TABLET BY l tablet 18:38: MOUTH ONCE Cristy nn 00 DAILY. TAKE COLCHICINE DAILY FOR 7 DAYS, THEN START ON ALLOPURINO L allopurinol 2021-08 Yes TAKE 1 Yung delia 300 mg oral 0-26 TABLET BY l tablet 18:38: MOUTH ONCE Cristy nn 00 DAILY. TAKE COLCHICINE DAILY FOR 7 DAYS, THEN START ON ALLOPURINO L allopurinol 2021-08 Yes TAKE 1 Yung delia 300 mg oral 0-26 TABLET BY l tablet 18:38: MOUTH ONCE Cristy nn 00 DAILY. TAKE COLCHICINE DAILY FOR 7 DAYS, THEN START ON ALLOPURINO L allopurinol 2021-08 Yes TAKE 1 Yung delia 300 mg oral 0-26 TABLET BY l tablet 18:38: MOUTH ONCE Cristy nn 00 DAILY. TAKE COLCHICINE DAILY FOR 7 DAYS, THEN START ON ALLOPURINO L traZODone 2021-0 Yes 50mg Take 50 mg Un iglesia 50 mg 9-23 by mouth ity of tablet 15:11: at [place] [address] bedtime. Medical Branch aspirin 81 2021-0 Yes 81mg Take 81 mg U nivers mg chewable 9-23 by mouth ity of tablet 15:11: in the [place] [address] morning. Medical Branch traZODone 2021-0 Yes 50mg Take 50 mg Un iglesia 50 mg 9-23 by mouth ity of tablet 15:11: at [place] [address] bedtime. Medical Branch aspirin 81 2021-0 Yes 81mg Take 81 mg U nivers mg chewable 9-23 by mouth ity of tablet 15:11: in the [place] [address] morning. Medical Branch traZODone 2021-0 Yes 50mg Take 50 mg Un iglesia 50 mg 9-23 by mouth ity of tablet 15:11: at [place] [address] bedtime. Medical Branch aspirin 81 2021-0 Yes 81mg Take 81 mg U nivers mg chewable 9-23 by mouth ity of tablet 15:11: in the [place] [address] morning. Medical Branch traZODone 2-0 Yes 50mg Take 50 mg Un iglesia 50 mg 9-23 by mouth ity of tablet 15:11: at [place] [address] bedtime. Medical Branch aspirin 81 2021-0 Yes 81mg Take 81 mg U nivers mg chewable 9-23 by mouth ity of tablet 15:11: in the [place] [address] morning. Medical Branch traZODone 2-0 Yes 50mg Take 50 mg Un iglesia 50 mg 9-23 by mouth ity of tablet 15:11: at [place] [address] bedtime. Medical Branch aspirin 81 2021-0 Yes 81mg Take 81 mg U nivers mg chewable 9-23 by mouth ity of tablet 15:11: in the [place] [address] morning. Medical Branch traZODone 2-0 Yes 50mg Take 50 mg Un iglesia 50 mg 9-23 by mouth ity of tablet 15:11: at [place] [address] bedtime. Medical Branch aspirin 81 2-0 Yes 81mg Take 81 mg U nivers mg chewable 9-23 by mouth ity of tablet 15:11: in the [place] [address] morning. Medical Branch traZODone 2-0 Yes 50mg Take 50 mg Un iglesia 50 mg 9-23 by mouth ity of tablet 15:11: at [place] [address] bedtime. Medical Branch aspirin 81 2-0 Yes 81mg Take 81 mg U nivers mg chewable 9-23 by mouth ity of tablet 15:11: in the [place] [address] morning. Medical Branch traZODone 2022-0 Yes 50mg Take 50 mg Un iglesia 50 mg 9-23 by mouth ity of tablet 15:11: at [place] [address] bedtime. Medical Branch aspirin 81 2-0 Yes 81mg Take 81 mg U nivers mg chewable 9-23 by mouth ity of tablet 15:11: in the [place] [address] morning. Medical Branch traZODone 2-0 Yes 50mg Take 50 mg Un iglesia 50 mg 9-23 by mouth ity of tablet 15:11: at [place] [address] bedtime. Medical Branch aspirin 81 2-0 Yes 81mg Take 81 mg U nivers mg chewable 9-23 by mouth ity of tablet 15:11: in the [place] [address] morning. Medical Branch lisinopriL 2-0 Yes 10mg Take 10 mg U nivers 10 mg 9-23 by mouth ity of tablet 15:11: in the [place] [address] morning. Medical Branch traZODone 2-0 Yes 50mg Take 50 mg Un iglesia 50 mg 9-23 by mouth ity of tablet 15:11: at [place] [address] bedtime. Medical Branch aspirin 81 2-0 Yes 81mg Take 81 mg U nivers mg chewable 9-23 by mouth ity of tablet 15:11: in the [place] [address] morning. Medical Branch lisinopriL 2022-0 Yes 10mg Take 10 mg U nivers 10 mg 9-23 by mouth ity of tablet 15:11: in the [place] [address] morning. Medical Branch traZODone 2022-0 Yes 50mg Take 50 mg Un iglesia 50 mg 9-23 by mouth ity of tablet 15:11: at [place] [address] bedtime. Medical Branch aspirin 81 0 Yes 81mg Take 81 mg U nivers mg chewable 9-23 by mouth ity of tablet 15:11: in the [place] [address] morning. Medical Branch lisinopriL 0 Yes 10mg Take 10 mg U nivers 10 mg 9-23 by mouth ity of tablet 15:11: in the [place] [address] morning. Medical Branch traZODone Yes 50mg Take 50 mg Un iglesia 50 mg 9-23 by mouth ity of tablet 15:11: at [place] [address] bedtime. Medical Branch aspirin 81 0 Yes 81mg Take 81 mg U nivers mg chewable 9-23 by mouth ity of tablet 15:11: in the [place] [address] morning. Medical Branch lisinopriL Yes 10mg Take 10 mg U nivers 10 mg 9-23 by mouth ity of tablet 15:11: in the [place] [address] morning. Medical Branch traZODone Yes 50mg Take 50 mg Un iglesia 50 mg 9-23 by mouth ity of tablet 15:11: at [place] [address] bedtime. Medical Branch aspirin 81 0 Yes 81mg Take 81 mg U nivers mg chewable 9-23 by mouth ity of tablet 15:11: in the [place] [address] morning. Medical Branch trazodone Yes TAKE 1 [...] Cristy nn 00 DAILY AT NIGHT iopamidol 0 2022- No [id number] 130mL 130 mL, Univers (ISOVUE 9-10 09-10 Intravenou ity o f 370-500 mL) 03:00: 01:50 s, ONCE, 1 [place] injection 00 :00 dose, On Medica l 130 mL Fri04/12/22 Branch at 2200, Routine tetracaine 0 2021- No 2[drp] 2 Drop, U nivers (PONTOCAINE 04-13 Left Eye, it y of ) 0.5 % 02:31: 02:32 ONCE, 1 [place] ophthalmic 00 :00 dose, On Medic al drops 2 Fri04/12/22 Branch Drop at 2145, Routine Memantine Yes 5 mg = 1 Yung delia hydrochlori 5-10 tab, PO, l de 5 MG 15:45: BID, # 60 Cristy nn Oral Tablet 00 tab, 3 [Namenda] Refill(s), Pharmacy: [facility], 177.8, cm, 06/14/20 13:15:00 SHIATSU THERAPIST, Height, 90, kg, 06/14/20 13:15:00 SHIATSU THERAPIST, Weight thiamine 0 Yes 100 mg = 1 Mem oria 100 mg oral 5-10 tab, PO, l tablet 15:45: Daily, X Danny 90 day, # 90 tab, 2 Refill(s), Pharmacy: [facility], 177.8, cm, 06/14/20 13:15:00 SHIATSU THERAPIST, Height, 90, kg, 06/14/20 13:15:00 SHIATSU THERAPIST, Weight Memantine 2020-0 Yes 5 mg = 1 Yung delia hydrochlori 5-10 tab, PO, l de 5 MG 15:45: BID, # 60 Cristy nn Oral Tablet 00 tab, 3 [Namenda] Refill(s), Pharmacy: [facility] 482, 177.8, cm, 06/14/20 13:15:00 SHIATSU THERAPIST, Height, 90, kg, 06/14/20 13:15:00 SHIATSU THERAPIST, Weight thiamine 2020-0 Yes 100 mg = 1 Mem oria 100 mg oral 5-10 tab, PO, l tablet 15:45: Daily, X Danny 00 90 day, # 90 tab, 2 Refill(s), Pharmacy: [facility] 482, 177.8, cm, 06/14/20 13:15:00 SHIATSU THERAPIST, Height, 90, kg, 06/14/20 13:15:00 SHIATSU THERAPIST, Weight Memantine 2020-0 Yes 5 mg = 1 Yung delia hydrochlori 5-10 tab, PO, l de 5 MG 15:45: BID, # 60 Cristy nn Oral Tablet 00 tab, 3 [Namenda] Refill(s), Pharmacy: [facility] 482, 177.8, cm, 06/14/20 13:15:00 SHIATSU THERAPIST, Height, 90, kg, 06/14/20 13:15:00 SHIATSU THERAPIST, Weight thiamine 2020-0 Yes 100 mg = 1 Mem oria 100 mg oral 5-10 tab, PO, l tablet 15:45: Daily, X [place] day, # 90 tab, 2 Refill(s), Pharmacy: [facility], 177.8, cm, 06/14/20 13:15:00 SHIATSU THERAPIST, Height, 90, kg, 06/14/20 13:15:00 SHIATSU THERAPIST, Weight Memantine 2020-0 Yes 5 mg = 1 Yung delia hydrochlori 5-10 tab, PO, l de 5 MG 15:45: BID, # 60 Cristy nn Oral Tablet 00 tab, 3 [Namenda] Refill(s), Pharmacy: [facility] 482, 177.8, cm, 06/14/20 13:15:00 SHIATSU THERAPIST, Height, 90, kg, 06/14/20 13:15:00 SHIATSU THERAPIST, Weight Memantine 2020-0 Yes 5 mg = 1 Yung delia hydrochlori 5-10 tab, PO, l de 5 MG 15:45: BID, # 60 Cristy nn Oral Tablet 00 tab, 3 [Namenda] Refill(s), Pharmacy: [facility], 177.8, cm, 06/14/20 13:15:00 SHIATSU THERAPIST, Height, 90, kg, 06/14/20 13:15:00 SHIATSU THERAPIST, Weight thiamine 2020-0 Yes 100 mg = 1 Mem oria 100 mg oral 5-10 tab, PO, l tablet 15:45: Daily, X Danny 00 90 day, # 90 tab, 2 Refill(s), Pharmacy: [facility], 177.8, cm, 06/14/20 13:15:00 SHIATSU THERAPIST, Height, 90, kg, 06/14/20 13:15:00 SHIATSU THERAPIST, Weight thiamine 2020-0 Yes 100 mg = 1 Mem oria 100 mg oral 5-10 tab, PO, l tablet 15:45: Daily, X [place] 00 day, # 90 tab, 2 Refill(s), Pharmacy: [facility] 482, 177.8, cm, 06/14/20 13:15:00 SHIATSU THERAPIST, Height, 90, kg, 06/14/20 13:15:00 SHIATSU THERAPIST, Weight Memantine 2019-08 Yes 5 mg = 1 Yung delia hydrochlori 1-11 tab, PO, l de 5 MG 19:41: BID, # 60 Cristy nn Oral Tablet 00 tab, 3 [Namenda] Refill(s), Pharmacy: [facility], 177.8, cm, 06/14/20 13:15:00 SHIATSU THERAPIST, Height, 90, kg, 06/14/20 13:15:00 SHIATSU THERAPIST, Weight Memantine 2019-08 Yes 5 mg = 1 Yung delia hydrochlori 1-11 tab, PO, l de 5 MG 19:41: BID, # 60 Cristy nn Oral Tablet 00 tab, 3 [Namenda] Refill(s), Pharmacy: [facility] 482, 177.8, cm, 06/14/20 13:15:00 SHIATSU THERAPIST, Height, 90, kg, 06/14/20 13:15:00 SHIATSU THERAPIST, Weight Memantine 2019-08 Yes 5 mg = 1 Yung delia hydrochlori 1-11 tab, PO, l de 5 MG 19:41: BID, # 60 Cristy nn Oral Tablet 00 tab, 3 [Namenda] Refill(s), Pharmacy: [facility] 482, 177.8, cm, 06/14/20 13:15:00 SHIATSU THERAPIST, Height, 90, kg, 06/14/20 13:15:00 SHIATSU THERAPIST, Weight Memantine 2019-08 Yes 5 mg = 1 Yung delia hydrochlori 1-11 tab, PO, l de 5 MG 19:41: BID, # 60 Cristy nn Oral Tablet 00 tab, 3 [Namenda] Refill(s), Pharmacy: [facility] 482, 177.8, cm, 06/14/20 13:15:00 SHIATSU THERAPIST, Height, 90, kg, 06/14/20 13:15:00 SHIATSU THERAPIST, Weight Memantine 2019-08 Yes 5 mg = 1 Yung delia hydrochlori 1-11 tab, PO, l de 5 MG 19:41: BID, # 60 Cristy nn Oral Tablet 00 tab, 3 [Namenda] Refill(s), Pharmacy: [facility] 482, 177.8, cm, 06/14/20 13:15:00 SHIATSU THERAPIST, Height, 90, kg, 06/14/20 13:15:00 SHIATSU THERAPIST, Weight Galantamine 2019-08 No 4 mg = 1 Me moria 4 MG Oral 0-21 tab, PO, l Tablet 16:02: Daily, # Danny [Razadyne] 00 30 tab, 3 Refill(s), Pharmacy: [facility] 482, 175.26, cm, 05/17/20 10:02:00 CDT, Height, 91.364, kg, 05/17/20 10:02:00 CDT, Weight Galantamine 2019-08 No 4 mg = 1 Me moria 4 MG Oral 0-21 tab, PO, l Tablet 16:02: Daily, # [place] [[place]az[place]ne] 00 30 tab, 3 Refill(s), Pharmacy: [facility] 482, 175.26, cm, 05/17/20 10:02:00 CDT, Height, 91.364, kg, 05/17/20 10:02:00 CDT, Weight Galantamine 2019-08 No 4 mg = 1 Me moria 4 MG Oral 0-21 tab, PO, l Tablet 16:02: Daily, # [place] [Razadyne] 00 30 tab, 3 Refill(s), Pharmacy: [facility] 482, 175.26, cm, 05/17/20 10:02:00 CDT, Height, 91.364, kg, 05/17/20 10:02:00 CDT, Weight Galantamine 2019-08 No 4 mg = 1 Me moria 4 MG Oral 0-21 tab, PO, l Tablet 16:02: Daily, # Danny [Razadyne] 00 30 tab, 3 Refill(s), Pharmacy: [facility] 482, 175.26, cm, 05/17/20 10:02:00 CDT, Height, 91.364, kg, 05/17/20 10:02:00 CDT, Weight Galantamine 2019-08 No 4 mg = 1 Me moria 4 MG Oral 0-21 tab, PO, l Tablet 16:02: Daily, # [place] [Razadyne] 00 30 tab, 3 Refill(s), Pharmacy: [facility] 482, 175.26, cm, 05/17/20 10:02:00 CDT, Height, 91.364, kg, 05/17/20 10:02:00 CDT, Weight thiamine 2019-08 Yes 100 mg = 1 Mem oria 100 mg oral 0-14 tab, PO, l tablet 15:11: Daily, X Danny day, # 90 tab, 1 Refill(s), Pharmacy: [facility] 482, 175.26, cm, 05/17/20 10:02:00 CDT, Height, 91.364, kg, 05/17/20 10:02:00 CDT, Weight Donepezil 2019-08 Yes 10 mg = 1 Mem oria hydrochlori 0-14 tab, PO, l de 10 MG 15:11: Bedtime, # Her shipley Oral Tablet 00 30 tab, 3 [Aricept] Refill(s), Pharmacy: [facility] 482, 175.26, cm, 05/17/20 10:02:00 CDT, Height, 91.364, kg, 05/17/20 10:02:00 CDT, Weight thiamine 2019-08 Yes 100 mg = 1 Mem oria 100 mg oral 0-14 tab, PO, l tablet 15:11: Daily, X Danny day, # 90 tab, 1 Refill(s), Pharmacy: [facility] 482, 175.26, cm, 05/17/20 10:02:00 CDT, Height, 91.364, kg, 05/17/20 10:02:00 CDT, Weight Donepezil 2019-08 Yes 10 mg = 1 Mem oria hydrochlori 0-14 tab, PO, l de 10 MG 15:11: Bedtime, # Her shipley Oral Tablet 00 30 tab, 3 [Aricept] Refill(s), Pharmacy: [facility] 482, 175.26, cm, 05/17/20 10:02:00 CDT, Height, 91.364, kg, 05/17/20 10:02:00 CDT, Weight thiamine 2019-08 Yes 100 mg = 1 Mem oria 100 mg oral 0-14 tab, PO, l tablet 15:11: Daily, X [place] day, # 90 tab, 1 Refill(s), Pharmacy: [facility] 482, 175.26, cm, 05/17/20 10:02:00 CDT, Height, 91.364, kg, 05/17/20 10:02:00 CDT, Weight Donepezil 2019-08 Yes 10 mg = 1 Mem oria hydrochlori 0-14 tab, PO, l de 10 MG 15:11: Bedtime, # Her shipley Oral Tablet 00 30 tab, 3 [Aricept] Refill(s), Pharmacy: [facility] 482, 175.26, cm, 05/17/20 10:02:00 CDT, Height, 91.364, kg, 05/17/20 10:02:00 CDT, Weight thiamine 2019-08 Yes 100 mg = 1 Mem oria 100 mg oral 0-14 tab, PO, l tablet 15:11: Daily, X Danny day, # 90 tab, 1 Refill(s), Pharmacy: [facility] 482, 175.26, cm, 05/17/20 10:02:00 CDT, Height, 91.364, kg, 05/17/20 10:02:00 CDT, Weight Donepezil 2019-08 Yes 10 mg = 1 Mem oria hydrochlori 0-14 tab, PO, l de 10 MG 15:11: Bedtime, # Her shipley Oral Tablet 00 30 tab, 3 [Aricept] Refill(s), Pharmacy: [facility] 482, 175.26, cm, 05/17/20 10:02:00 CDT, Height, 91.364, kg, 05/17/20 10:02:00 CDT, Weight thiamine 2019-08 Yes 100 mg = 1 Mem oria 100 mg oral 0-14 tab, PO, l tablet 15:11: Daily, X [place] day, # 90 tab, 1 Refill(s), Pharmacy: [facility] 482, 175.26, cm, 05/17/20 10:02:00 CDT, Height, 91.364, kg, 05/17/20 10:02:00 CDT, Weight Donepezil 2019-1 Yes 10 mg = 1 Mem oria hydrochlori 0-14 tab, PO, l de 10 MG 15:11: Bedtime, # Her shipley Oral Tablet 00 30 tab, 3 [Aricept] Refill(s), Pharmacy: [facility] 482, 175.26, cm, 05/17/20 10:02:00 CDT, Height, 91.364, kg, 05/17/20 10:02:00 CDT, Weight thiamine 2019-08 No 100 mg = 1 Mem oria 100 mg oral 0-14 tab, PO, l tablet 15:10: Daily, # [place] 00 90 tab, 1 Refill(s) thiamine 2019-08 No 100 mg = 1 Mem oria 100 mg oral 0-14 tab, PO, l tablet 15:10: Daily, # Danny 00 90 tab, 1 Refill(s) thiamine 2019-08 No 100 mg = 1 Mem oria 100 mg oral 0-14 tab, PO, l tablet 15:10: Daily, # [place] 00 90 tab, 1 Refill(s) thiamine 2019-08 No 100 mg = 1 Mem oria 100 mg oral 0-14 tab, PO, l tablet 15:10: Daily, # Danny 00 90 tab, 1 Refill(s) thiamine 2019-08 No 100 mg = 1 Mem oria 100 mg oral 0-14 tab, PO, l tablet 15:10: Daily, # [place] 00 90 tab, 1 Refill(s) Donepezil 2020-0 Yes 5 mg = 1 Yung delia hydrochlori 9-30 tab, PO, l de 5 MG 16:00: Bedtime, # Herm sosa Oral Tablet 00 30 tab, 3 [Aricept] Refill(s), Pharmacy: [facility] 482, 172.72, cm, 05/03/20 10:23:00 CDT, Height, 90.909, kg, 05/03/20 10:23:00 CDT, Weight Donepezil 2020-0 Yes 5 mg = 1 Yung delia hydrochlori 9-30 tab, PO, l de 5 MG 16:00: Bedtime, # Herm sosa Oral Tablet 00 30 tab, 3 [Aricept] Refill(s), Pharmacy: [facility] 482, 172.72, cm, 05/03/20 10:23:00 CDT, Height, 90.909, kg, 05/03/20 10:23:00 CDT, Weight Donepezil 2020-0 Yes 5 mg = 1 Yung delia hydrochlori 9-30 tab, PO, l de 5 MG 16:00: Bedtime, # Herm sosa Oral Tablet 00 30 tab, 3 [Aricept] Refill(s), Pharmacy: [facility] 482, 172.72, cm, 05/03/20 10:23:00 CDT, Height, 90.909, kg, 05/03/20 10:23:00 CDT, Weight Donepezil 2020-0 Yes 5 mg = 1 Yung delia hydrochlori 9-30 tab, PO, l de 5 MG 16:00: Bedtime, # Herm sosa Oral Tablet 00 30 tab, 3 [Aricept] Refill(s), Pharmacy: [facility] 482, 172.72, cm, 05/03/20 10:23:00 CDT, Height, 90.909, kg, 05/03/20 10:23:00 CDT, Weight Donepezil 2020-0 Yes 5 mg = 1 Yung delia hydrochlori 9-30 tab, PO, l de 5 MG 16:00: Bedtime, # Herm sosa Oral Tablet 00 30 tab, 3 [Aricept] Refill(s), Pharmacy: [facility] 482, 172.72, cm, 05/03/20 10:23:00 CDT, Height, 90.909, kg, 05/03/20 10:23:00 CDT, Weight lisinopril 2020-0 Yes 10 mg = 1 Me moria 10 mg oral 9-18 tab, PO, l tablet 18:29: Daily, 0 [place] 00 Refill(s) aspirin 81 2020-0 Yes 162 mg = 2 M emoria mg tablet, 9-18 tab, PO, l enteric 18:29: Daily, # Les n coated 00 90 tab, 3 Refill(s) Aspirin 81 2020-0 Yes 81 mg = 1 Me moria MG Enteric 9-18 tab, PO, l Coated 18:29: Daily, # [place] Tablet 00 90 tab, 3 Refill(s) Diphenhydra 2020-0 Yes 2 tab, PO, Memoria mine 918 Bedtime, 0 l Hydrochlori 18:29: Refill(s) H ermann de 25 MG / 00 Naproxen sodium 220 MG Oral Tablet [Aleve PM] Aspirin 81 2020-0 Yes 81 mg = 1 Me moria MG Enteric 9-18 tab, PO, l Coated 18:29: Daily, # [place] Tablet 90 tab, 3 Refill(s) Diphenhydra 2020-0 Yes 2 tab, PO, Memoria mine 918 Bedtime, 0 l Hydrochlori 18:29: Refill(s) H ermann de 25 MG / 00 Naproxen sodium 220 MG Oral Tablet [Aleve PM] lisinopril 2020-0 Yes 10 mg = 1 Me moria 10 mg oral 9-18 tab, PO, l tablet 18:29: Daily, 0 Danny 00 Refill(s) aspirin 81 2020-0 Yes 162 mg = 2 M emoria mg tablet, 9-18 tab, PO, l enteric 18:29: Daily, # Les n coated 90 tab, 3 Refill(s) Aspirin 81 2020-0 Yes 81 mg = 1 Me moria MG Enteric 9-18 tab, PO, l Coated 18:29: Daily, # [place] Tablet 90 tab, 3 Refill(s) Diphenhydra 2020-0 Yes 2 tab, PO, Memoria mine 918 Bedtime, 0 l Hydrochlori 18:29: Refill(s) H ermann de 25 MG / 00 Naproxen sodium 220 MG Oral Tablet [Aleve PM] lisinopril 2020-0 Yes 10 mg = 1 Me moria 10 mg oral 9-18 tab, PO, l tablet 18:29: Daily, 0 Danny 00 Refill(s) aspirin 81 2020-0 Yes 162 [...] tab, PO, l tablet 18:29: Daily, 0 Danny 00 Refill(s) Aspirin 81 2020-0 Yes 81 mg = 1 Me moria MG Enteric 9-18 tab, PO, l Coated 18:29: Daily, # Danny Tablet 00 90 tab, 3 Refill(s) Diphenhydra 2020-0 Yes 2 tab, PO, Memoria mine 9-18 Bedtime, 0 l Hydrochlori 18:29: Refill(s) H ermann de 25 MG / 00 Naproxen sodium 220 MG Oral Tablet [Aleve PM] lisinopril 2020-0 Yes 10 mg = 1 Me moria 10 mg oral 9-18 tab, PO, l tablet 18:29: Daily, 0 Danny 00 Refill(s) aspirin 81 2019-0 Yes 162 mg = 2 M emoria mg tablet, 9-18 tab, PO, l enteric 18:29: Daily, # Les n coated 00 90 tab, 3 Refill(s) Vital Signs Vital Name Observation Time Observation Value Comments Source Systolic blood 2023-03-12 19:43:00 114 mm[Hg] [facility] Diastolic blood 2023-03-12 19:43:00 78 mm[Hg] [facility] Heart rate 2023-03-12 19:43:00 91 /min [facility] Body height 2023-03-12 19:43:00 180.3 cm [facility] Body weight 2023-03-12 19:43:00 97.16 kg [facility] BMI 2023-03-12 19:43:00 29.87 kg/m2 [facility] Oxygen saturation in 2023-03-12 19:43:00 94 /min [facility] blood by [facility] Pulse oximetry Branch Systolic blood 2022-04-26 20:16:00 94 mm[Hg] [facility] Diastolic blood 2022-04-26 20:16:00 67 mm[Hg] Unive rsity of [facility] Heart rate 2022-04-26 20:16:00 93 /min [facility] Oxygen saturation in 2022-04-26 20:16:00 96 /min [facility] Arterial blood by [facility] sandra Pulse oximetry Branch Body temperature 2022-04-26 20:14:00 36.56 Felisa [facility] Respiratory rate 2022-04-26 20:14:00 19 /min [facility] Body height 2022-04-26 20:14:00 175.3 cm [facility] Body weight 2022-04-26 20:14:00 92.897 kg [facility] BMI 2022-04-26 20:14:00 30.24 kg/m2 [facility] Systolic blood 2022-04-13 02:30:00 128 mm[Hg] Univer sity [facility] Diastolic blood 2022-04-13 02:30:00 75 mm[Hg] Unive rsity of pressure [facility] Heart rate 2022-04-13 02:30:00 72 /min [facility] Respiratory rate 2022-04-13 02:30:00 21 /min [facility] Oxygen saturation in 2022-04-13 02:30:00 97 /min [facility] Arterial blood by [facility] Pulse oximetry Branch Body temperature 2022-04-13 00:41:00 37.11 Felisa [facility] Body height 2022-04-13 00:41:00 175.3 cm [facility] [place] [facility] Body weight 2022-04-13 00:41:00 95.709 kg [facility] BMI 2022-04-13 00:41:00 31.16 kg/m2 [facility] Systolic (mm Hg) 2022-05-29 18:35:00 Yung rial [place] Diastolic (mm Hg) 2022-05-29 18:35:00 Mem orial [place] Heart Rate 2022-05-29 18:35:00 [facility] [place] Height 2022-05-29 18:35:00 5 [ft_i] [facility] [place] Weight 2022-05-29 18:35:00 [facility] [place] BMI Calculated 2022-05-29 18:35:00 Memori al [place] Systolic (mm Hg) 2022-04-23 20:05:00 Yung rial [place] Diastolic (mm Hg) 2022-04-23 20:05:00 Mem orial [place] Heart Rate 2022-04-23 20:05:00 [facility] [place] Respitory Rate 2022-04-23 20:05:00 Memori al [place] Height 2022-04-23 20:05:00 172.72 cm [facility] [place] Weight 2022-04-23 20:05:00 [facility] [place] BMI Calculated 2022-04-23 20:05:00 Memori al [place] Weight 2020-06-14 19:15:00 [facility] [place] BMI Calculated 2020-06-14 19:15:00 Memori al [place] Systolic (mm Hg) 2020-06-14 19:15:00 Yung rial [place] Diastolic (mm Hg) 2020-06-14 19:15:00 Mem orial Danny Heart Rate 2020-06-14 19:15:00 [facility] [place] Respitory Rate 2020-06-14 19:15:00 Memori al [place] Height 2020-06-14 19:15:00 177.8 cm [facility] [place] Systolic (mm Hg) 2020-05-17 15:02:00 Yung rial [place] Diastolic (mm Hg) 2020-05-17 15:02:00 Mem orial [place] Heart Rate 2020-05-17 15:02:00 [facility] [place] Respitory Rate 2020-05-17 15:02:00 Memori al [place] Height 2020-05-17 15:02:00 175.26 cm [facility] [place] Weight 2020-05-17 15:02:00 [facility] [place] BMI Calculated 2020-05-17 15:02:00 Memori al [place] Systolic (mm Hg) 2020-05-03 15:17:00 Yung rial [place] Diastolic (mm Hg) 2020-05-03 15:17:00 Mem orial Danny Heart Rate 2020-05-03 15:17:00 [facility] [place] Respitory Rate 2020-05-03 15:17:00 Memori al [place] Height 2020-05-03 15:17:00 172.72 cm [facility] [place] Weight 2020-05-03 15:17:00 [facility] [place] BMI Calculated 2020-05-03 15:17:00 Dione villalobos [place] Systolic (mm Hg) 2020-04-21 18:26:00 Yung li [place] Diastolic (mm Hg) 2020-04-21 18:26:00 Myron salinas [place] Heart Rate 2020-04-21 18:26:00 [facility] [place] Height 2020-04-21 18:26:00 175.26 cm [facility] [place] Weight 2020-04-21 18:26:00 [facility] [place] BMI Calculated 2020-04-21 18:26:00 Dione villalobos [place] Procedures Procedure Date / Time Performing Clinician Source Performed N-TERMINAL PRO-BNP 2023-03-12 21:09:00 Jenni Bain [facility] EXTERNAL PROVIDER - ADC 2023-03-03 05:01:00 Doctor Lida, [facility] REFERRAL [place] [facility] INSURANCE CORRESPONDENCE 2023-02-20 05:01:00 Doctor Lida, [facility] [place] [facility] CONSENT/REFUSAL FOR 2022-04-26 19:49:37 Doctor Lida, [facility] DIAGNOSIS AND TREATMENT [place] [facility] EKG-12 LEAD 2022-04-13 03:11:46 Cassius [facility] CT ANGIOGRAM HEAD 2022-04-13 02:10:[address] [facility] CT ANGIOGRAM NECK 2022-04-13 02:10:[address] [facility] [address] STROKE PERFUSION W 2022-04-13 02:10:54 Donaldo Hammonds [facility] CONTRAST [facility] CT HEAD WO CONTRAST 2022-04-13 02:09:37 Donaldo Hammonds [facility] COMP. METABOLIC PANEL 2022-04-13 01:12:00 Donaldo Hammonds [facility] ([id number]) [facility] CBC WITH DIFF 2022-04-13 01:12:00 Cassius [facility] PROTHROMBIN TIME / INR 2022-04-13 01:12:00 Donaldo Hammonds [facility] ACTIVATED PARTIAL 2022-04-13 01:12:00 Hammonds, Donaldo [facility] Branch COVID-19 (ID NOW RAPID 2022-04-13 01:12:00 [facility] Medical Branch NOTICE OF PRIVACY 2022-04-13 00:38:02 Doctor Kassidysscamilo, Kareen [facility] PRACTICES [place] [facility] CONSENT/REFUSAL FOR 2022-04-13 00:37:29 Doctor Unassigned, Maria E [facility] DIAGNOSIS AND TREATMENT [place] [facility] Encounters Start End Encounter Admission Attending Care Care Encounter Source Date/Time Date/Time Type Type Clinicians Facility Department ID 2023-03-13 2023-03-13 Telephone [facility] [id number] Univers 00:00:00 00:00:00 Jenni W[place]SON 350.1.13.10 [id number] [place] [id number] [facility] 2023-03-13 2023-03-13 [facility] [id number] Univers 00:00:00 00:00:00 Sendsamra W[place]SON 350.1.13.10 [id number] [id number] [address] 2023-03-12 2023-03-12 [facility] [id number] Univers 15:28:27 23:59:00 Encounter Jenni WATSON 350.1.13.10 [place] [id number] [facility] 807 Branch 2023-03-12 2023-03-12 Outpatient R [facility] [id number] Univers 15:28:27 23:59:00 JENNI ring o f [facility] 2023-03-12 2023-03-12 Account Representative Librado, Adc Lab Main [facility] [id number] [id number] Univers 16:00:00 16:15:00 Visit Jenni Bain 350.1.13.10 [id number] [id number] Ok dical NAL 353 [facility] 2023-03-12 2023-03-12 Office [facility], [facility] [id number] Univers 14:40:00 15:00:00 Visit Jenni WATSON 350.1.13.10 it[place] of [place] [id number] Ok dical NAL 059 [facility] 2023-03-03 2023-03-03 Orders Doctor SHUKRI [id number] [id number] Univers 00:00:00 00:00:00 Only Unassigned, HARRY 350.1.13.10 ity of [place] [facility] 4.2.7.2.686 Alireza as [id number] [address] 2023-02-20 2023-02-20 Orders Doctor WATT [id number] Univers 00:00:00 00:00:00 Only Unassigned, HARRY 350.1.13.10 ity of [place] [facility] 4.2.7.2.686 Alireza as [id number] [address] 2022-10-07 2022-10-09 Outside MHIE MNA [id number] Memoria 20:13:58 05:59:59 Medical Neurology 00 l Records Sheila Robertsann 2022-10-07 2022-10-09 Outside MHIE MNA [id number] Memoria 20:13:58 05:59:59 Medical Neurology 00 l Records Candleryelitza Robertsann 2022-10-07 2022-10-08 Outpatient MHMISCHER MHKIYASCHZOHRA [id number] 14:13:58 23:59:59 00 2022-09-03 2022-09-03 Ambulatory MHIE MNA [id number] Memoria 17:00:00 17:00:00 Pre-Reg Neurology 14 l Sheila Robertsann 2022-09-03 2022-09-03 Ambulatory MHIE MNA [id number] Memoria 17:00:00 17:00:00 Pre-Reg Neurology 14 l Candleryelitza Robetrsann 2022-09-03 2022-09-03 Outpatient TATYANA StephensMISCHER [id number] 11:00:00 11:00:00 [place] 14 Maulik 2022-08-09 2022-08-09 Outpatient MHIE MHIE [id number] Memoria 15:30:00 15:30:00 14 jonny Delgado 2022-07-12 2022-07-12 Ambulatory MHIE MNA [id number] Memoria 19:45:00 19:45:00 Pre-Reg Neurology 13 l Sheila Delgado 2022-07-12 2022-07-12 Ambulatory MHIE MNA [id number] Memoria 19:45:00 19:45:00 Pre-Reg Neurology 13 l Sheila Delgado 2022-07-12 2022-07-12 Outpatient MHIE MHIE [id number] Memoria 13:45:00 13:45:00 13 jonny Delgado 2022-07-12 2022-07-12 Outpatient Kat, MISCHER MHMISCHER [id number] 13:45:00 13:45:00 [place] 13 Maulik 2022-05-29 2022-05-30 Outpatient nullFlavo MNA [id number] Memoria 18:30:00 04:59:59 r Neurology 12 l Sheila Delgado 2022-05-29 2022-05-30 Outpatient nullFlavo MNA [id number] Memoria 18:30:00 04:59:59 r Neurology 12 l Sheila Delgado 2022-05-29 2022-05-29 [facility] [id number] 13:30:00 23:59:59 [place] 12 Maulik 2022-05-29 2022-05-29 Outpatient MHIE MHIE [id number] Memoria 13:30:00 13:30:00 12 jonny Delgado 2022-05-15 2022-05-15 [place] ELAN Bain [id number] Univers 00:00:00 00:00:00 Jenni WAT[place] 350.1.13.10 ityonny [facility] [place] [id number] [address] 2022-05-14 2022-05-14 Outpatient R ODELL [facility] [id number] Univers 13:12:44 23:59:00 JENNI ring o f [facility] 2022-04-26 2022-04-26 Outpatient R ODELL, [facility] [id number] Univers 15:00:00 15:28:12 JENNI ring o f [facility] 2022-04-26 2022-04-26 Office Odell, [facility] [id number] Univers 15:00:00 15:28:12 Visit Jenni W[place]SON 350.1.13.10 [place] [id number] [address] 2022-04-26 2022-04-26 Orders Doctor SHUKRI [id number] [id number] Univers 00:00:00 00:00:00 Only Unassigned, HARRY 350.1.13.10 ity of [place] [facility] 4.2.7.2.686 Alireza as [id number] [address] 2022-04-23 2022-04-24 Outpatient nullFlavo MNA [id number] Memoria 20:45:00 04:59:59 r Neurology 11 jonny Sheila Delgado 2022-04-23 2022-04-24 Outpatient nullFlavo MNA [id number] Memoria 20:45:00 04:59:59 r Neurology 11 jonny Sheila Delgado 2022-04-23 2022-04-23 Outpatient TATYANA Stephens KIYASCHER [id number] 15:45:00 23:59:59 [place] Opal Willingham 2022-04-23 2022-04-23 Outpatient MHIE MHIE [id number] Memoria 15:45:00 15:45:00 11 jonny Delgado 2022-04-12 2022-04-12 Emergency X DONALDO HAMMONDS [facility] [id number] Univers 19:52:00 22:31:00 DONALDO HAMMONDS of [facility] 2022-04-12 2022-04-12 Emergency Cassius [facility] [id number] Univers 19:52:00 22:31:00 Donaldo WATSON 350.1.13.10 i Janeen 4.2.7.2.686 [facility] [id number] [facility] [address] [place] 2022-03-22 2022-03-22 Ambulatory nullFlavo MNA [id number] Memoria 16:00:00 16:00:00 Pre-Reg r Neurology 10 l Candleryelitza Delgado 2022-03-22 2022-03-22 Ambulatory nullFlavo MNA [id number] Memoria 16:00:00 16:00:00 Pre-Reg r Neurology 10 l Candleryelitza Delgado 2022-03-22 2022-03-22 Outpatient MHIE MHIE [id number] Memoria 11:00:00 11:00:00 10 l Danny 2022-03-22 2022-03-22 [facility] [id number] 11:00:00 11:00:00 [place] 10 Maulik 2022-03-13 2022-03-13 Ambulatory nullFlavo MNA [id number] Memoria 15:00:00 15:00:00 Pre-Reg r Neurology 09 l Candleryelitza Robertsann 2022-03-13 2022-03-13 Ambulatory nullFlavo MNA [id number] Memoria 15:00:00 15:00:00 Pre-Reg r Neurology 09 l Sheila Robertsann 2022-03-13 2022-03-13 Outpatient MHIE MHIE [id number] Memoria 10:00:00 10:00:00 09 jonny Delgado 2022-03-13 2022-03-13 Outpatient [facility] [id number] 10:00:00 10:00:00 [place] 09 Maulik 2021-06-13 2021-06-14 Outpatient nullFlavo MNA [id number] Memoria 16:30:00 05:59:59 r Neurology 08 jonny Robertsann 2021-06-13 2021-06-14 Outpatient nullFlavo MNA [id number] Memoria 16:30:00 05:59:59 r Neurology 08 l Candleryelitza Robertsann 2021-06-13 2021-06-13 [facility] [id number] 10:30:00 23:59:59 [place] 08 Maulik 2021-06-13 2021-06-13 Outpatient MHIE MHIE [id number] Memoria 10:30:00 10:30:00 08 jonny Delgado 2020-12-11 2020-12-12 Outpatient nullFlavo MNA [id number] Memoria 15:30:00 04:59:59 r Neurology 07 l Sheila Delgado 2020-12-11 2020-12-12 Outpatient nullFlavo MNA [id number] Memoria 15:30:00 04:59:59 r Neurology 07 l Sheila Delgado 2020-12-11 2020-12-11 [facility] [id number] 10:30:00 23:59:59 [place] Missy Willingham 2020-12-11 2020-12-11 Outpatient MHIE MHIE [id number] Memoria 10:30:00 10:30:00 07 jonny Delgado 2020-09-20 2020-09-20 Ambulatory nullFlavo MNA [id number] Memoria 21:00:00 21:00:00 Pre-Reg r Neurology 05 l Sheila Robertsann 2020-09-20 2020-09-20 Ambulatory nullFlavo MNA [id number] Memoria 21:00:00 21:00:00 Pre-Reg r Neurology 05 l Sheila Robertsann 2020-09-20 2020-09-20 Outpatient Kat [facility] [id number] 15:00:00 15:00:00 [place] 05 Maulik 2020-08-17 2020-08-17 Outpatient MHIE MHIE [id number] Memoria 09:45:00 09:45:00 05 jonny Danny 2020-06-14 2020-06-15 Outpatient nullFlavo MNA [id number] Memoria 19:00:00 05:59:59 r Neurology 06 l [place] 2020-06-14 2020-06-15 Outpatient nullFlavo MNA [id number] Memoria 19:00:00 05:59:59 r Neurology 06 l [place] 2020-06-14 2020-06-14 [id number] 13:00:00 23:59:59 [place] 06 Maulik 2020-06-14 2020-06-14 Ambulatory nullFlavo MNA [id number] Memoria 16:30:00 16:30:00 Pre-Reg r Neurology 04 l Sheila Delgado 2020-06-14 2020-06-14 Ambulatory nullFlavo MNA [id number] Memoria 16:30:00 16:30:00 Pre-Reg r Neurology 04 l Sheila Roberts2020-06-14 2020-06-14 Outpatient MHIE MHIE [id number] Memoria 13:00:00 13:00:00 06 jonny [place] 2020-06-14 2020-06-14 Outpatient MHIE MHIE [id number] Memoria 10:30:00 10:30:00 04 jonny Danny 2020-06-14 2020-06-14 [id number] 10:30:00 10:30:00 [place] 04 Maulik 2020-05-17 2020-05-18 Outpatient nullFlavo MNA [id number] Memoria 14:45:00 04:59:59 r Neurology 02 jonny [place] Danny 2020-05-17 2020-05-18 Outpatient nullFlavo MNA [id number] Memoria 14:45:00 04:59:59 r Neurology 02 jonny [place] 2020-05-17 2020-05-17 [id number] 09:45:00 23:59:59 [place] 02 Maulik 2020-05-17 2020-05-17 Outpatient MHIE MHIE [id number] Memoria 09:45:00 09:45:00 02 jonny Danny 2020-05-03 2020-05-04 Outpatient nullFlavo MNA [id number] Memoria 15:45:00 04:59:59 r Neurology 03 l [place] 2020-05-03 2020-05-04 Outpatient nullFlavo MNA [id number] Memoria 15:45:00 04:59:59 r Neurology 03 l [place] 2020-05-03 2020-05-03 Outpatient Kat [facility] [id number] 10:45:00 23:59:59 [place] 03 Maulik 2020-05-03 2020-05-03 Outpatient MHIE MHIE [id number] Memoria 10:45:00 10:45:00 03 jonny Delgado 2020-05-01 2020-05-01 Ambulatory nullFlavo MNA [id number] Memoria 15:30:00 15:30:00 Pre-Reg r Neurology 00 l Sheila Delgado 2020-05-01 2020-05-01 Ambulatory nullFlavo MNA [id number] Memoria 15:30:00 15:30:00 Pre-Reg r Neurology 00 l Sheila Robertsann 2020-05-01 2020-05-01 [id number] 10:30:00 10:30:00 [place] 00 Maulik 2020-04-21 2020-04-22 Outpatient nullFlavo MNA [id number] Memoria 19:30:00 04:59:59 r Neurology 01 l Sheila Delgado 2020-04-21 2020-04-22 Outpatient nullFlavo MNA [id number] Memoria 19:30:00 04:59:59 r Neurology 01 l Sheila Robertsann 2020-04-21 2020-04-21 Outpatient [facility]AT[facility]NA [id number] 14:30:00 23:59:59 [place] 01 Maulik 2020-04-21 2020-04-21 Outpatient MHIE RAMÓNIE [id number] Memoria 14:30:00 14:30:00 01 jonny Delgado Results Test Description Test Time Test Comments Results Result Comments Source N-TERMINAL PRO-BNP 2023-03-12 22:08:13 Test Item Value Reference Range Interpretation Comme nts NT-proBNP (test code = 44592-4) 80 pg/mL <=125 Lab Interpretation (test code = 61700-5) Normal [facility] WITH [id number] 01:42:50 Test Item Value Reference Range Interpretation Comments WBC (test code = See_Comment [Automated message] 6690-2) The system [employer] generated this result transmitted ref erence range: 4.20 - 1 0.70 10*3/?L. The re ference range was not u sed to interpret this result as normal/abnor mal. RBC (test code = See_Comment [Automated message] 789-8) The system [employer] generated this result transmitted ref erence range: 4.26 - 5 .52 10*6/?L. The re ference range was not u sed to interpret this result as normal/abnor mal. HGB (test code = 14.7 g/dL 12.2-16.4 718-7) HCT (test code = 43.3 % 38.4-49.3 4544-3) MCV (test code = 89.6 fL 81.7-95.6 787-2) MCH (test code = 30.4 pg 26.1-32.7 785-6) MCHC (test code = 33.9 g/dL 31.2-35 786-4) RDW-SD (test code 42.3 fL 38.5-51.6 = 80953-9) RDW-CV (test code 12.9 % 12.1-15.4 = 788-0) PLT (test code = See_Comment [Automated message] 777-3) The system [employer] generated this result transmitted ref erence range: 150 - 32 8 10*3/?L. The re ference range was not u sed to interpret this result as normal/abnor mal. MPV (test code = 9.8 fL 9.8-13 99660-6) NRBC/100 WBC (test See_Comment [Automat ed message] code = 9573353976) The syste m which generated this result transmitted ref erence range: 0.0 - 10 .0 /100 WBCs. The refer ence range was not u sed to interpret this result as normal/abnor mal. NRBC x10^3 (test See_Comment [Automated message] code = 5221588264) The syste m which generated this result transmitted ref erence range: 10*3/?L. The reference range was not used to interpr et this result as normal/abnormal . GRAN MAT (NEUT) % 53.3 % (test code = 770-8) IMM GRAN % (test 0.40 % code = 6873089073) LYMPH % (test code 32.5 % = 736-9) MONO % (test code 10.3 % = 5905-5) EOS % (test code = 2.9 % 713-8) BASO % (test code 0.6 % = 706-2) GRAN MAT 4.74 10*3/uL 1.99-6.95 x10^3(ANC) (test code = 7312503145) IMM GRAN x10^3 0.04 10*3/uL 0-0.06 (test code = 9224302849) LYMPH x10^3 (test 2.89 10*3/uL 1.09-3.23 code = 731-0) MONO x10^3 (test 0.92 10*3/uL 0.36-1.02 code = 742-7) EOS x10^3 (test 0.26 10*3/uL 0.06-0.53 code = 711-2) BASO x10^3 (test 0.05 10*3/uL 0.01-0.09 code = 704-7) [facility] ([id number])2022-04-13 01:39:28 Test Item Value Reference Range Interpretation Comments NA (test code = 140 mmol/L 135-145 0971311638) K (test code = 4.7 mmol/L 3.5-5 3954343515) CL (test code = 107 mmol/L 98-108 6152009070) CO2 TOTAL (test code = 27 mmol/L 23-31 4869316139) AGAP (test code = 2-16 5947652720) BUN (test code = 22 mg/dL 7-23 8700956954) GLUCOSE (test code = 92 mg/dL 70-110 6210301976) CREATININE (test code = 1.71 mg/dL 0.6-1.25 H 8143495887) TOTAL BILI (test code = 0.6 mg/dL 0.1-1.1 0858267972) CALCIUM (test code = 9.1 mg/dL 8.6-10.6 5655405169) T PROTEIN (test code = 6.4 g/dL 6.3-8.2 6727770727) ALBUMIN (test code = 4.3 g/dL 3.5-5 4598568501) ALK PHOS (test code = 80 U/L 34-122 2992101574) ALTv (test code = 25 U/L 5-50 1742-6) AST(SGOT) (test code = 27 U/L 13-40 2549864664) eGFR (test code = mL/min/1.73m2 1140889628) TIA (test code = TIA) Association of [...] tests). Lab Interpretation Abnormal (test code = 05294-5) [facility] [id number] 01:36:47 Test Item Value Reference Range Interpretation Comments APTT Patient (test See_Comment [Automat ed code = 3173-2) message] The system which generated this result transmitted reference range : 23 - 38 Seconds . The reference range was not used to interpr et this result as normal/abnormal . TIA (test code = TIA) [facility] mean normal value for aPTT is 30 seconds. Lab Interpretation Normal (test code = 88524-4) [facility] [id number] 01:34:47 Test Item Value Reference Range Interpretation Comments PROTIME PATIENT (test See_Comment [Auto mated message] code = 5964-2) The system [employer] generated this result transmitted ref erence range: 12.0 - 1 4.7 Seconds. The re ference range was not u sed to interpret this result as normal/abnor mal. INR (test code = 6301-6) Nor mal INR <1.1; Warfarin Therap eutic range 2.0 to 3. 0 or 2.5 to 3.5, dep ending upon the indica tions. Lab Interpretation (test Normal code = 78185-1) [facility] Notes Date/Time Note Provider Source 2023-03-19 Formatting of this note might be differe nt from the original. Lashell Blackman RN [facility] 08:56:37-00:00 Patient returned call to cli stefany. Spouse notified of results. She has no further questions or concerns. Electronically signed by Lashell Blackman, RN at 8:57 AM CDT 2023-03-13 Formatting of this note might be differe nt from the original. Cher Sharma RN [facility] 09:49:36-00:00 Images from the original note were not included. Attempt to call patient, unable to LVM as trevino gs up, will try again later Message Received: Yesterday Jenni Bain MD P Cardiology Nurse BNP and chest x-ray are norm al. No evidence of fluid overload. Try aggressive lifestyle changes to lose weight if possible. 2023-03-12 Formatting of this note is different from the or iginal. [facility] 16:00:00-00:00 Images from the original note were not included. Venipuncture collection perf ormed by clean technique on the left anticubitus. Total of 1 attempts were made. Slight pressure and a bandage/dressing were applied to the site(s). The patient experienced n o complications. The followi ng specimens were processed according to instructions and [facility] per lab order on 03/12/2023 : LT BLUE SST 1 RED LAV PPT DK GREEN (LiHep) DK GREEN (SodH) MCGARRY DK BLUE (K2) DK BLUE (S) ACD Blood Culture NIPT/NTD Electronically signed by Rosa Lugo at 0 03/12/2023 4:10 PM CDT"
--- NOTE | 2023-04-16 11:03 | RAD REPORT ---
EXAM DESCRIPTION: CT - Head C Spine Mpr Wo Con - 04/16/2023 10:53 am CLINICAL HISTORY: Head and neck injury status post fall. Head and neck pain COMPARISON: January [address] TECHNIQUE: Computed axial tomography of the head and cervical spine was obtained. Sagittal and coronal reconstruction was performed. All CT scans are performed using dose optimization technique as appropriate and may include automated exposure control or mA/KV adjustment according to patient size. FINDINGS: An intracranial bleed is not seen. The ventricles are normal in caliber. Mild low-density areas within periventricular, deep and subcortical white matter likely ischemic bush ges secondary to small vessel disease. Moderate cerebral atrophy. An extra-axial fluid collection is not noted. Fluid within the visualized sinuses and mastoids is not seen chronic right maxillary sinusitis A cervical fracture is not visualized. No dislocation is noted. Spondylosis cervical spine. Slight anterior subluxation of C4 on C5 A 0.3 centimeter calcified right thyroid nodule IMPRESSION: No acute intracranial abnormality is seen. A cervical fracture is not visualized. If the patient continues to have symptoms to suggest intracranial /spinal cord pathology then MRI wou ld be recommended
--- NOTE | 2023-04-16 11:26 | RAD REPORT ---
EXAM DESCRIPTION: RAD - Shoulder Left 2 View - 04/16/2023 11:15 am CLINICAL HISTORY: Left shoulder pain FINDINGS: No fracture or dislocation is seen. Mild osteoarthritis Clinical joint
--- NOTE | 2023-04-16 11:31 | RAD REPORT ---
EXAM DESCRIPTION: RAD - Knee Left 3 View - 04/16/2023 11:14 am CLINICAL HISTORY: Left knee pain FINDINGS: No fracture or dislocation is seen. Chondrocalcinosis is present
--- NOTE | 2023-04-16 11:46 | ER ---
Nurse's Notes [facility] Name: Isaias Oshea Age: 67 yrs Sex: Male : 1955 Arrival Date: 04/16/2023 Time: 10:34 Bed 19 Private MD: Diagnosis: Pain in left shoulder;Pain in left knee;Neck pain Presentation: 04/16 10:30 Chief complaint: EMS states: PT CAME IN FROM HOME BY EMS COMPLAINING OF LEFT SHOULDER, db LEFT KNEE AND LEFT LEG PAIN. PATIENT HAS ALZHEIMERS AND IS UNABLE TO VERBALIZE IF HE FELL. Coronavirus screen: Client denies travel out of the [place] in the last 14 days. At this time, the client does not indicate any symptoms associated with coronavirus-19. Ebola Screen: Patient negative for fever greater than or equal to 101.5 degrees Fahrenheit, and additional compatible Ebola Virus Disease symptoms Patient denies exposure to infectious person. Patient denies travel to an Ebola-affected area in the 21 days before illness onset. No symptoms or risks identified at this time. Initial Sepsis Screen: Does the patient meet any 2 criteria? No. Patient's initial sepsis screen is negative. Does the patient have a suspected source of infection? No. Patient's initial sepsis screen is negative. Risk Assessment: Do you want to hurt yourself or someone else? Patient reports no desire to harm self or others. Onset of symptoms was April 16, 2023. Mechanism of Injury: POSSIBLE FALL. 10:30 Method Of Arrival: EMS: [facility] db 10:30 Acuity: WADE 3 db Triage Assessment: 10:30 General: Appears in no apparent distress. comfortable, Behavior is calm, cooperative. db Pain: Complains of pain in left arm and left leg. Historical: - Allergies: 12:22 No Known Allergies; db - Home Meds: 10:43 trazodone 50 mg Oral tab 1 tab once daily [Active]; atenolol 25 mg Oral tablet 0.5 tab db once [Active]; tamsulosin 0.4 mg Oral capsule once [Active]; rivastigmine 4.6 mg/24 hour transdermal patch, transdermal 24 hours daily [Active]; mirtazapine 15 mg Oral tablet every day at bedtime [Active]; lisinopril 10 mg Oral tab 1 tab once daily [Active]; - PMHx: 10:43 Alzheimer's disease; Hypertensive disorder; db - Immunization history:: Client reports receiving the 2nd dose of the Covid vaccine. - Social history:: Smoking status: Smoking status: Patient denies any tobacco usage or history of. Screenin:46 [facility] ED Fall Risk Assessment (Adult) History of falling in the last 3 months, db including since admission Yes- single mechanical fall (1 pt) Confusion or Disorientation Yes (5 pts) Intoxicated or Sedated No (0 pts) Impaired Gait No (0 pts) Mobility Assist Device Used Yes (1 pt) Altered Elimination No (0 pt) Score/Fall Risk Level 3 or more points = High Risk Oriented to surroundings, Maintained a safe environment, Hourly rounding (assess needs \T\ fall precautionary measures) done. Abuse screen: Denies threats or abuse. Denies injuries from another. Nutritional screening: No deficits noted. Tuberculosis screening: No symptoms or risk factors identified. Assessment: 10:46 Reassessment: Patient appears in no apparent distress at this time. Patient and/or db family updated on plan of care and expected duration. Pain level reassessed. Patient is alert, oriented x 3, equal unlabored respirations, skin warm/dry/pink. PT TO CT. General: Appears in no apparent distress. comfortable, Behavior is calm, cooperative. 12:20 Reassessment: Patient appears in no apparent distress at this time. Patient and/or db family updated on plan of care and expected duration. Pain level reassessed. Patient is alert, oriented x 3, equal unlabored respirations, skin warm/dry/pink. Vital Signs: 10:30 BP 121 / 78; Pulse 88; Resp 16; Temp 99(O); Pulse Ox 95% on R/A; Weight 95.71 kg; db Height 5 ft. 11 in. ; 12:11 BP 118 / 181; Pulse 74; Resp 16; Pulse Ox 99% on R/A; db 10:30 Body Mass Index 29.43 (95.71 kg, 180.34 cm) db ED Course: 10:30 Arm band placed on Patient placed in an exam room. db 10:38 Patient arrived in ED. bd 10:38 Saúl Salazar DO is Attending Physician. ms3 10:41 Poppy Lundberg, MIGUEL A is Primary Nurse. db 10:43 Triage completed. db 10:46 Patient has correct armband on for positive identification. Bed in low position. Call db light in reach. Side rails up X 1. Pulse ox on. NIBP on. 10:48 Maintain EMS IV. Dressing intact. Good blood return noted. Site clean \T\ dry. Gauge \T\ db site: 20 G RAC. 10:54 CT Head C Spine In Process Unspecified. EDMS 11:16 Shoulder Left (2 View) XRAY In Process Unspecified. EDMS 11:16 Knee Left 3 View XRAY In Process Unspecified. EDMS 12:20 Provided Education on: discharge. db 12:20 No provider procedures requiring assistance completed. IV discontinued, intact, db bleeding controlled, No redness/swelling at site. Administered Medications: No medications were administered Medication: 12:20 VIS not applicable for this client. db Outcome: 11:46 Discharge ordered by . ms3 12:20 Discharged to home ambulatory, with family. db 12:20 Condition: stable 12:20 Discharge instructions given to family, Instructed on 12:27 Patient left the ED. db Signatures: Dispatcher [employer] EDMS Cookie Morse Marcus, DO DO ms3 Poppy Lundberg, RN RN db Corrections: (The following items were deleted from the chart) 10:44 10:30 BP 121 / 78; Pulse 88bpm; Resp 16bpm; Pulse Ox 95% RA; Temp 99F Oral; db db
--- NOTE | 2023-04-16 11:46 | EDPHYS ---
Physician Documentation [facility] Name: Isaias Oshea Age: 67 yrs Sex: Male : 1955 Arrival Date: 04/16/2023 Time: 10:34 Bed 19 Private MD: ED Physician Saúl Salazar HPI: 04/16 10:42 This 67 yrs old Male presents to ER via Unassigned with complaints of Shoulder Pain - ms3 POSSIBLE FALL, Knee Pain. 10:42 67-year-old male with past medical history of dementia presents via [facility] for ms3 possible fall. Patient's states patient awoke this morning and was rubbing his left shoulder, left neck, and left knee. She is unaware if patient may have fallen while outside. Patient denies pain. Patient denies any alleviating or inciting factors.. Historical: - Allergies: 12:22 No Known Allergies; db - Home Meds: 10:43 trazodone 50 mg Oral tab 1 tab once daily [Active]; atenolol 25 mg Oral tablet 0.5 tab db once [Active]; tamsulosin 0.4 mg Oral capsule once [Active]; rivastigmine 4.6 mg/24 hour transdermal patch, transdermal 24 hours daily [Active]; mirtazapine 15 mg Oral tablet every day at bedtime [Active]; lisinopril 10 mg Oral tab 1 tab once daily [Active]; - PMHx: 10:43 Alzheimer's disease; Hypertensive disorder; db - Immunization history:: Client reports receiving the 2nd dose of the Covid vaccine. - Social history:: Smoking status: Smoking status: Patient denies any tobacco usage or history of. ROS: 10:42 Constitutional: Negative for fever, and chills. Cardiovascular: Negative for chest ms3 pain, and palpitations. Respiratory: Negative for shortness of breath, cough, wheezing, and pleuritic chest pain, Abdomen/GI: Negative for abdominal pain, nausea, vomiting, diarrhea, and constipation, Skin: Negative for injury, rash, and discoloration. 10:42 Neck: Positive for Pain reported by . 10:42 MS/extremity: Positive for left shoulder and left knee pain. 10:42 All other systems are negative. Exam: 10:42 Constitutional: This is a well developed, well nourished patient who is awake, alert, ms3 and in no acute distress. Head/Face: Normocephalic, atraumatic. Neck: Trachea midline, no cervical lymphadenopathy. Supple, full range of motion without nuchal rigidity, or vertebral point tenderness. No Meningismus. Chest/axilla: Normal chest wall appearance and motion. Nontender with no deformity. Cardiovascular: Regular rate and rhythm with a normal S1 and S2. No gallops, murmurs, or rubs. Normal PMI, no JVD. No pulse deficits. Respiratory: Lungs have equal breath sounds bilaterally, clear to auscultation and percussion. No rales, rhonchi or wheezes noted. No increased work of breathing, no retractions or nasal flaring. Abdomen/GI: Soft, non-tender, with normal bowel sounds. No distension or tympany. No guarding or rebound. No evidence of tenderness throughout. Skin: Warm, dry with normal turgor. Normal color with no rashes, no lesions, and no evidence of cellulitis. MS/ Extremity: Pulses equal, no cyanosis. Neurovascular intact. Full, normal range of motion. Vital Signs: 10:30 BP 121 / 78; Pulse 88; Resp 16; Temp 99(O); Pulse Ox 95% on R/A; Weight 95.71 kg; db Height 5 ft. 11 in. ; 12:11 BP 118 / 181; Pulse 74; Resp 16; Pulse Ox 99% on R/A; db 10:30 Body Mass Index 29.43 (95.71 kg, 180.34 cm) db MDM: 10:38 Patient medically screened. ms3 10:42 Differential Diagnosis ICH vs FX vs Strain vs MSK pain. ms3 11:32 Data reviewed: vital signs, nurses notes, radiologic studies, CT scan, plain films, and ms3 as a result, I will discharge patient. Independent interpretation of the following test(s) in the Emergency Department X-Ray: My interpretation is L shoulder x-ray images reviewed do not reveal fracture. Historians other than the Patient: EMS: [facility]. Spouse/Significant Other: Patient's . Counseling: I had a detailed discussion with the patient and/or guardian regarding the historical points, exam findings, and any diagnostic results supporting the discharge/admit diagnosis, lab results, radiology results, the need for outpatient follow up, to return to the emergency department if symptoms worsen or persist or if there are any questions or concerns that arise at home. Special discussion: I discussed with the patient/guardian in detail that at this point there is no indication for admission to the hospital. It is understood, however, that if the symptoms persist or worsen the patient needs to return immediately for re-evaluation. ED course: Discussed imaging with the patient and his . Patient to follow-up with primary care physician in 2 to 3 days. Patient's understands and agrees with plan. All questions were answered. Return precautions discussed include worsening symptoms, or any other concerns. 04/16 10:41 Order name: CT Head C Spine; Complete Time: 11:32 ms3 04/16 10:41 Order name: Shoulder Left (2 View) XRAY; Complete Time: 11:32 ms3 04/16 10:41 Order name: Knee Left 3 View XRAY; Complete Time: 11:32 ms3 Administered Medications: No medications were administered Disposition Summary: 04/16/23 11:46 Discharge Ordered Location: Home ms3 Condition: Stable ms3 Diagnosis - Pain in left shoulder ms3 - Pain in left knee ms3 - Neck pain ms3 Followup: ms3 - With: Private Physician - When: 2 - 3 days - Reason: Recheck today's complaints Discharge Instructions: - Discharge Summary Sheet ms3 - Musculoskeletal Pain ms3 Forms: - Medication Reconciliation Form ms3 - Thank You Letter ms3 - Antibiotic Education ms3 - Prescription Opioid Use ms3 - Patient Portal Instructions ms3 - Leadership Thank You Letter ms3 Signatures: Dispatcher [employer] EDSaúl Russo DO DO ms3 Poppy Lundberg, RN RN db
[2023-04-16 12:34] VITALS: O2SAT 99
== END 2023-04-16 12:27 | disposition home or self-care (01) ==
LOC: ER 10:34
DX: M25.512 Pain in left shoulder (principal); M25.562 Pain in left knee; M54.2 Cervicalgia; G30.9 Alzheimer's disease, unspecified; F02.80 Dementia in other diseases classified elsewhere, unspecified severity, without behavioral disturbance, psychotic disturbance, mood disturbance, and anxiety; I10 Essential (primary) hypertension
CPT/HCPCS: 70450; 72125; 99283